=== PATIENT | male | born 1955 | race Caucasian/White ===

== ENCOUNTER 2021-01-03 13:11 | Outpatient (REF) | payer BC, SELFPAY ==
--- NOTE | ~2021-01-03 | XR_ITS ---
EXAMINATION: LEFT FOOT AND RIGHT FINGER. CLINICAL INFORMATION: Pain right hand. Pain left foot. COMPARISON: None TECHNIQUE: 3 views right finger. 3 views left foot. FINDINGS: Right finger: There is no visible acute fracture, dislocation or subluxation seen. No lytic process. The PIP and DIP joints are normal. The soft tissues are normal. Left foot: There is no visible acute fracture, dislocation or subluxation. The soft tissues are normal. XR/XR foot LT min 3V IMPRESSION: Unremarkable right finger and left foot exam.
--- NOTE | ~2021-01-03 | XR_ITS ---
EXAMINATION: LEFT FOOT AND RIGHT FINGER. CLINICAL INFORMATION: Pain right hand. Pain left foot. COMPARISON: None TECHNIQUE: 3 views right finger. 3 views left foot. FINDINGS: Right finger: There is no visible acute fracture, dislocation or subluxation seen. No lytic process. The PIP and DIP joints are normal. The soft tissues are normal. Left foot: There is no visible acute fracture, dislocation or subluxation. The soft tissues are normal. XR/XR finger RT min 2V IMPRESSION: Unremarkable right finger and left foot exam.
== END 2021-01-03 13:12 | disposition home or self-care (01) ==
LOC: HO.HMGCX 13:11
PROVIDERS: PCP Internal Medicine; Visit Provider Hospitalist
DX: M79.672 Pain in left foot (principal); M79.641 Pain in right hand
CPT/HCPCS: 73140; 73630

== ENCOUNTER 2021-02-01 09:16 | Outpatient (REF) | payer BC, SELFPAY | END 2021-02-01 09:17 | disposition home or self-care (01) | LOC: HO.LAB 09:16 | PROVIDERS: PCP Internal Medicine; Visit Provider Internal Medicine | DX: Z20.822 Contact with and (suspected) exposure to COVID-19 (principal) | CPT/HCPCS: C9803; U0003; U0005 ==

== ENCOUNTER → 2021-02-15 12:51 | Outpatient (REF) | payer BC, SELFPAY ==
--- NOTE | 2021-02-15 12:55 | CA_ITS ---
Transthoracic Echocardiogram Patient (Last, First, Middle): Mo Bello J Gender: Male Date of : 1955 Age: 65 Procedure Date: 02/15/2021 Procedure Type: Transthoracic Echocardiogram Location: OP Height: 180.34 cm Weight: 77.11 kg BSA: 1.97 m2 Heart Rate: bpm BP: 124 / 68 mmHg Electrical Continuity Tester: IVAN Referring MD: Benji Zhang DO Anime Artist: Chris Jean MD Symptoms: R01.1 - Cardiac murmur, unspecified Study Quality: Fair ECG Rhythm: Sinus Conclusions: - 1. Normal LV systolic and diastolic function 2. Moderately dilated left atrium 3. Myxomatous mitral valve changes with posterior mitral valve leaflet prolapse with at least moderate eccentric mitral regurgitation, could be underestimated. Quantitative analysis was not performed 4. Mildly dilated ascending aorta 5. Mild aortic regurgitation 6. Normal RV systolic pressure 7. No pericardial effusion Findings Left Ventricle Normal left ventricular size, thickness, and systolic function. The visually estimated ejection fraction is between 60-65%. Spectral Doppler is indicative of a normal filling pattern. Right Ventricle Normal right ventricular cavity size and systolic function. Atria The left atrium is moderately dilated. There is no evidence of interatrial shunt. The right atrium is likely dilated. Aortic Valve Normal aortic valve structure and function. There is no aortic valve stenosis. There is mild aortic valve regurgitation. Mitral Valve The mitral valve appears myxomatous. There is moderate anterior and posterior mitral leaflet thickening. There is mild posterior mitral leaflet prolapse. There is moderate mitral valve regurgitation. The mitral regurgitation jet is directed anteriorly. There is no mitral valve stenosis. Pulmonic Valve The pulmonic valve is likely normal. Tricuspid Valve Likely normal tricuspid valve structure and function. There is mild tricuspid valve regurgitation. The right ventricular systolic pressure is normal. The right ventricular systolic pressure is 37 mmHg. Normal right atrial pressure. There is no evidence of pulmonary hypertension. Great Vessels The pulmonary artery was not well visualized. There is mild dilatation of the ascending aorta measuring 4.20 cm. Venous The inferior vena cava is normal in size and collapses greater than 50% with inspiration. Pericardium/Pleural There is no evidence of pericardial effusion. Prior Study Comparison No prior study available for comparison. Measurements 2D Linear Measurements IVSd: 1.05 0.6-0.9/0.6-1.0 cm LVIDd: 6.27 3.9-5.3/4.2-5.9 cm LVIDd Index: 3.18 2.4-3.2/2.2-3.1 cm/m2 LVIDs: 4.01 2.0-3.6 cm LVPWd: 1.09 0.7-1.1 cm Ao Root: 3.00 2.1-3.5 cm LA Diam: 4.80 2.7-3.8/3.0-4.0 cm LAIDs Index: 2.44 1.5-2.3 cm/m2 LV Mass: 398.25 67-162/88-224 g LV Mass Index: 202.16 43-95/49-115 g/m2 LVOT Diam: 2.20 3.0+(-)1.3 cm 2D Systolic Function EF 4C: 67.20 >55% EF 2C: 62.80 >55% EF BiP: 65.50 >55% Mitral Valve MV Pk E: 0.72 MV PK A: 0.32 MV Decel Time: 208.00 E/A: 2.30 E'Lateral: 9.14 E'Medial: 9.68 E/E' Med: 7.50 E/E' Lat: 7.90 PHT: 61.00 MVA PHT: 3.61 Decel [place]: 3.48 Aortic Valve AoV Pk [place]: 1.36 AoV Pk Grad: 7.00 AI Pk [place]: 3.91 AI [place]: 1.69 LVOT LVOT Pk [place]: 1.16 LVOT Mn [place]: 0.62 LVOT VTI: 0.21 LVOT Pk Grad: 5.00 LVOT Mn Grad: 2.00 LVOT Diam: 2.20 LVOT Area: 3.80 Diastolic Function MV Pk E: 0.72 MV Pk A: 0.32 E/A: 2.30 E'Medial: 9.68 E/E' Med: 7.50 E' Laterial: 9.14 E/E' Lat: 7.90 Right Ventricle TAPSE (mm): 2.75 Tricuspid Valve TR Pk [place]: 2.91 TR Pk Grad: 34.00 RA Press: 3.00 RVSP: 37.00 Great Vessels Aorta Ao Root-2D: 3.00 2.0-3.7 cm Ao Asc: 4.20 2.1-3.4 cm Ao Arch: 3.00 Updated in Other Vendor System with Status of Final Chris Jean MD electronically signed on 02/16/2021 9:25:24 AM with status of Final
== END ==
LOC: HO.CARD 12:51
PROVIDERS: PCP Internal Medicine; Visit Provider Hospitalist
DX: R01.1 Cardiac murmur, unspecified (principal)
CPT/HCPCS: 93306

== ENCOUNTER 2021-05-09 12:42 | Outpatient (REF) | payer BC, SELFPAY ==
[2021-05-09 13:01] LABS: MANUAL DIFF FLAG NO
[2021-05-09 13:05] LABS: Basophils Percent Auto 0.6 % (0-2); Eosinophils Absolute Auto 0.1 X10*3/uL (0.0-0.4); Hematocrit 43.9 % (42.0-52.0); Hemoglobin 14.2 g/dl (14.0-18.0); Imm Gran Abs Auto 0.02 X10*3/uL (0.00-0.03); Imm Gran Pct Auto 0.4 % (0.0-0.4); Lymphocytes Absolute Auto 1.7 X10*3/uL (1.2-4.9); Lymphocytes Percent Auto 33.5 % (20-40); Mean Corpuscular HGB Conc 32.3 g/dl (31.0-36.0); Mean Corpuscular Hemoglobin 30.5 pg (27.0-33.0); Mean Corpuscular Volume 94.2 fL (80.0-98.0); Mean Platelet Volume 9.7 fL (9.4-12.4); Monocytes Absolute Auto 0.3 X10*3/uL (0.1-1.2); Monocytes Percent Auto 6.7 % (2-11); Neutrophils Absolute Auto 2.9 x10*3/uL (2.0-8.3); Neutrophils Percent Auto 57.8 % (45-73); Platelet Count 195 X10*3/uL (160-400); Red Blood Count 4.66 X10*6/uL (4.60-5.80); Red Cell Distribution Width 13.1 % (11.0-16.0); White Blood Count 5.1 X10*3/uL (4.8-10.8)
[2021-05-09 14:36] LABS: Prostate Specific Antigen Scr 2.32 ng/mL (<0.05-4.0); TSH reflex Free T4 0.68 uIU/mL (0.32-4.0); Vitamin D 25-OH Total 11.5 ng/mL (>30)
[2021-05-09 16:09] LABS: Appearance Urine CLEAR; Color Urine YELLOW; Glucose Urine UA NEG (NEG); Leukocyte Esterase Urine NEG (NEG); Nitrite Urine NEG (NEG); Specific Gravity - Urine >= 1.030 (1.005-1.025); Urine Blood NEG (NEG); Urine Ketones NEG (NEG); Urine Protein NEG (NEG-TRACE)
== END 2021-05-09 12:43 | disposition home or self-care (01) ==
LOC: HO.LAB 12:42
PROVIDERS: PCP Internal Medicine; Visit Provider Internal Medicine
DX: Z00.00 Encounter for general adult medical examination without abnormal findings (principal); Z12.5 Encounter for screening for malignant neoplasm of prostate; E55.9 Vitamin D deficiency, unspecified; E78.00 Pure hypercholesterolemia, unspecified; I10 Essential (primary) hypertension
CPT/HCPCS: 36415; 81003; 82306; 84153; 84443; 85025

== ENCOUNTER 2021-05-16 08:16 | Outpatient (REF) | payer BC, SELFPAY ==
[2021-05-16 09:28] LABS: Alanine Aminotransferase 14 U/L (0-40); Albumin Level 4.1 g/dL (3.5-5.0); Alkaline Phosphatase 42 U/L (39-117); Anion Gap 8 (12-20); Aspartate Amino Transferase 17 U/L (5-37); Bilirubin Total 1.4 mg/dL (0.0-1.0); Blood Urea Nitrogen 16 mg/dL (9-16); Calcium 9.4 mg/dL (8.4-10.2); Carbon Dioxide 29 mmol/L (22-29); Chloride 109 mmol/L (96-108); Cholesterol 184 mg/dL; Estimated Glomerular Filt Rate > 60; Glucose Fasting 96 mg/dL (60-99); HDL Cholesterol 53 mg/dL; LDL Cholesterol Calculated 119 mg/dl; Potassium 4.4 mmol/L (3.3-5.1); Sodium 142 mmol/L (135-145); Total Protein 6.8 g/dL (6.5-8.0); Triglycerides 60 mg/dL
== END 2021-05-16 08:17 | disposition home or self-care (01) ==
LOC: HO.LAB 08:16
PROVIDERS: PCP Internal Medicine; Visit Provider Internal Medicine
DX: Z00.00 Encounter for general adult medical examination without abnormal findings (principal); Z13.220 Encounter for screening for lipoid disorders
CPT/HCPCS: 36415; 80053; 80061

== ENCOUNTER 2021-05-25 13:24 | Outpatient (REF) | payer BC, SELFPAY ==
[2021-05-25 20:58] LABS: Influenza A PCR NEGATIVE (Negative); Influenza B PCR NEGATIVE (Negative); Resp Syncy Virus RNA Qual PCR NEGATIVE (Negative); SARS COV2 PCR INHOUSE NEGATIVE (Negative)
== END 2021-05-25 13:25 | disposition home or self-care (01) ==
LOC: HO.LAB 13:24
PROVIDERS: Visit Provider Family Medicine
DX: Z20.822 Contact with and (suspected) exposure to COVID-19 (principal); B34.9 Viral infection, unspecified
CPT/HCPCS: 0241U

== ENCOUNTER 2022-10-21 10:20 | Outpatient (REF) | payer BC, SELFPAY ==
[2022-10-21 10:35] LABS: MANUAL DIFF FLAG NO
[2022-10-21 10:48] LABS: Basophils Absolute Auto 0.1 X10*3/uL (0.0-0.2); Eosinophils Absolute Auto 0.1 X10*3/uL (0.0-0.4); Eosinophils Percent Auto 2.9 % (0-4); Hematocrit 42.2 % (42.0-52.0); Hemoglobin 14.1 g/dl (14.0-18.0); Imm Gran Abs Auto 0.01 X10*3/uL (0.00-0.03); Imm Gran Pct Auto 0.2 % (0.0-0.4); Lymphocytes Absolute Auto 1.8 X10*3/uL (1.2-4.9); Mean Corpuscular HGB Conc 33.4 g/dl (31.0-36.0); Mean Corpuscular Hemoglobin 30.5 pg (27.0-33.0); Mean Corpuscular Volume 91.1 fL (80.0-98.0); Mean Platelet Volume 9.5 fL (9.4-12.4); Monocytes Absolute Auto 0.4 X10*3/uL (0.1-1.2); Monocytes Percent Auto 8.1 % (2-11); Neutrophils Absolute Auto 2.4 x10*3/uL (2.0-8.3); Neutrophils Percent Auto 50.8 % (45-73); Platelet Count 197 X10*3/uL (160-400); Red Blood Count 4.63 X10*6/uL (4.60-5.80); Red Cell Distribution Width 12.8 % (11.0-16.0); White Blood Count 4.8 X10*3/uL (4.8-10.8)
[2022-10-21 11:13] LABS: Appearance Urine Clear; Color Urine Yellow; Glucose Urine UA Negative (Negative); Leukocyte Esterase Urine Negative (Negative); Nitrite Urine Negative (Negative); PH 5.5 (5.0-9.0); Urine Blood Negative (Negative); Urine Ketones Negative (Negative); Urine Protein Negative (Neg-Trace)
[2022-10-21 11:28] LABS: Alanine Aminotransferase 24 U/L (0-40); Albumin Level 4.1 g/dL (3.5-5.0); Alkaline Phosphatase 50 U/L (39-117); Anion Gap 11 (12-20); Aspartate Amino Transferase 21 U/L (5-37); Bilirubin Total 1.3 mg/dL (0.0-1.0); Blood Urea Nitrogen 14 mg/dL (9-16); Calcium 9.4 mg/dL (8.4-10.2); Carbon Dioxide 27 mmol/L (22-29); Chloride 108 mmol/L (96-108); Cholesterol 126 mg/dL; Estimated Glomerular Filt Rate > 60; Glucose Fasting 88 mg/dL (60-99); HDL Cholesterol 43 mg/dL; LDL Cholesterol Calculated 76 mg/dl; Potassium 4.3 mmol/L (3.3-5.1); Sodium 142 mmol/L (135-145); Triglycerides 38 mg/dL
[2022-10-21 11:44] LABS: TSH reflex Free T4 0.87 uIU/mL (0.32-4.0)
== END 2022-10-21 10:21 | disposition home or self-care (01) ==
LOC: HO.LAB 10:20
PROVIDERS: PCP Internal Medicine; Visit Provider Internal Medicine
DX: R30.0 Dysuria (principal); E78.00 Pure hypercholesterolemia, unspecified; E55.9 Vitamin D deficiency, unspecified; I10 Essential (primary) hypertension
CPT/HCPCS: 36415; 80053; 80061; 81003; 82306; 84443; 85025

== ENCOUNTER 2023-03-06 14:33 | Outpatient (AMB) | payer BC, SELFPAY ==
--- NOTE | 2023-03-06 14:51 | MHC.PC.OV ---
Vital Signs 03/06/23 14:52 Height 5 ft 10 in Weight 182 lb 4 oz BMI 26.1 BP 100/72 Blood Pressure Location Lt brachial Position Sitting Pulse 58 Pulse Source Pulse Oximeter Pulse Oximetry (%) 97 Oxygen Delivery Method Room Air Intake Visit Reasons: annual PE Social Services Required: No Accompanied by: Self / Same As Patient Allergies poison adolfo extract Allergy (Severe, Verified 03/06/23 15:27) Blister cat dander [CATS] Allergy (Mild, Verified 03/06/23 15:27) SNEEZING/ITCHY EYES Environmental Allergy (Mild, Uncoded 03/06/23 15:27) SNEEZING/ITCHY EYES Medication List - Last Reconciled 03/06/23 by Tico Reynolds MD amoxicillin 2,000 mg (4 x 500 mg) PO ONCE 1 day apixaban (Eliquis) 5 mg PO BID 10 days aspirin 325 mg PO DAILY atorvastatin 20 mg PO BEDTIME 90 days metoprolol succinate ER 12.5 mg (1/2 x 25 mg) PO DAILY 90 days Tobacco use date assessed: 03/06/23 Fall risk assessment: No Falls in past year Last assessed Fall Risk: 03/06/23 Dental Screening Dental Screen Date: 03/06/23 Did you have a dental visit in the last 12 months?: Yes Did you have a dental problem in the last 6 months where you did not have access to dental care?: No Was dental information given to patient?: Patient has dentist HPI annual PE HPI Details Patient comes in today for his annual physical examination States that he feels okay although his friend, who has been helping him throughout his recovery process, notes that there are days wherein he has no motivation at all and does not feel like he wants to do anything Patient continues to struggle with short-term memory recall and expressive aphasia He has received outpatient speech therapy for this in the past with some improvement in his aphasia His friend states that he is still not doing well with his memory and often needs a lot of help and repeated reminders to help him get through the day He continues to follow up at the outpatient Stroke Clinic in [place] every 3 to 6 months or so He is currently going to cardiac rehab once a week and will be starting PT & OT at [facility] nect month (March 2023) States that he currently tries to stay active at home by mowing the lawn and doing come chores and DIY work whenever he can but he is still not allowed/approved to go back to driving yet He will potentially be undergoing another cardiac cath sometime next month with cardiology for follow up of his cardiac surgery and valvular repair He currently denies any headaches or dizziness Denies any chest pains, no increased SOB No nausea/vomiting, no abdominal pain No change in bowel habits noted He denies any acute urinary symptoms - states that he goes to the bathroom in the middle of the night at most just once or sometimes not at all He is currently out of his Eliquis (took last dose last night) and is having trouble getting his doctor in [place] to refill his Rx He also did not get his follow up labs done prior to his visit today He had his screening colonoscopy last done by Dr. Shirley on 01/26/2020 - (+) tubular adenoma and recommended repeat colonoscopy in 5 years (2024) [facility] Medical History (Updated 03/06/23 @ 18:12 by Tico Reynolds MD) Cerebrovascular accident (CVA) Vitamin D deficiency Left atrial dilatation Mitral valve prolapse Tubular adenoma of colon Allergic rhinitis Overweight (BMI 25.0-29.9) Surgical History (Updated 03/06/23 @ 17:18 by Tico Reynolds MD) Hx of mitral valve repair (~02/22/22) History of colonoscopy History of esophagogastroduodenoscopy (EGD) History of inguinal hernia repair History of tonsillectomy and adenoidectomy H/O right wrist surgery Family History Father Prostate cancer Mother Alzheimers disease Sister Multiple sclerosis Non-Hodgkin lymphoma Social History Housing: House Alcohol intake: current Alcohol intake frequency: a few times a month Patient Tobacco Use Status: Former Tobacco user e-Cigarette/Vaping Use: Never Used Second Hand Smoke Exposure: Yes service: No Current occupational status: employed Cognitive needs: No Hearing needs: No Vision needs: No Questionnaire PHQ-9 Over the last 2 weeks, how often have you been bothered by any of the following problems? 1. Little interest or pleasure in doing things: not at all 2. Feeling down, depressed, or hopeless: not at all 3. Trouble falling or staying asleep, or sleeping too much: not at all 4. Feeling tired or having little energy: not at all 5. Poor appetite or overeating: not at all 6. Feeling bad about yourself - or that you are a failure or have let yourself or your family down: not at all 7. Trouble concentrating on things, such as reading the newspaper or watching television: not at all 8. Moving or speaking so slowly that other people could have noticed. Or the opposite - being so fidgety or restless that you have been moving around a lot more than usual: not at all 9. Thoughts that you would be better off or of hurting yourself in some way: not at all Total score: 0 Depression Screening Interpretation: Negative Depression Screening Done: Yes 28525 - PHQ-9 Billing: Yes Source: Developed by Drs. Kody Rouse, Renée Hatch, Misha Bravo and colleagues, with an educational malik from [employer] Thrive Questionnaire Date Thrive assessed: 03/06/23 I am a: Patient What is your living situation today?: I have a steady place to live Within the past 12 months, did the food you bought not last and you didn't have the money to get more?: Never true Within the past 12 months, did you worry whether your food would run out before you got money to buy more?: Never true Do you have trouble paying for medicines?: No Do you have trouble getting transportation to medical appointments?: No Do you have trouble paying your heating and electricity bill?: No Do you have trouble taking care of your child, family member or friend?: No Do you have trouble with day-to-day activities such as bathing, preparing meals, shopping, managing finances, etc.?: No Are you currently unemployed and looking for a job?: No Are you interested in more education?: No Please select the resources that you would like help with: None Currently or been in a relationship where the following occur: no concerns reported AUDIT C Alcohol Use Questionnaire (AUDIT-C) 1. How often do you have a drink containing alcohol?: Never 3. How often do you have six or more drinks on one occasion?: Never Total Score: 0 Score Reviewed/Action Taken: Yes ZAKIYA-7 AMB Questionnaire ZAKIYA-7 Date ZAKIYA - 7 assessed: 03/06/23 Feeling nervous, anxious, or on edge: 0 = Not at all Not being able to stop or control worryin = Not at all Worrying too much about different things: 0 = Not at all Trouble relaxin = Not at all Being so restless that it is hard to sit still: 0 = Not at all Becoming easily annoyed or irritable: 0 = Not at all Feeling afraid as if something awful might happen: 0 = Not at all Total ZAKIYA-7 score (0-4 normal; 5-9 mild; 10-14 moderate; 15-21 severe): 0 Source: Developed by Drs. Kody Rouse, Renée Hatch, Misha Bravo and colleagues, with an educational malik from [employer] Review of Systems Const Denies chills, Reports fatigue (mild), Denies fever(s) and Denies headache(s) Eyes Reports blurry vision (right eye) and Denies diplopia ENT Denies dysphagia, Reports vertigo (on and off), Denies otalgia, Denies headache(s), Denies neck pain, Denies odynophagia, Reports tinnitus (on and off) and Denies sore throat Card Denies chest pain, Denies palpitations and Reports dyspnea on exertion (mild) Resp Denies cough, Reports dyspnea on exertion (mild) and Denies wheezing GI Denies abdominal pain, Denies constipation, Denies dysphagia, Denies diarrhea, Denies nausea, Denies odynophagia and Denies vomiting Denies difficulty urinating, Denies dysuria, Denies nocturia, Denies urinary frequency and Denies urinary incontinence Musc Denies abnormal gait, Denies back pain and Denies neck pain Skin/Breast Denies change in pigmentation, Denies lesions, Denies rash and Denies unusual bruising Neuro Denies Abnormal speech present (still has issues with expressive aphasia at times), Denies abnormal gait, Reports confusion (at times), Reports vertigo (on and off), Denies headache(s) and Reports memory loss (mostly short-term ) Psych Reports confusion (at times) and Reports memory loss (mostly short-term ) Endo Reports fatigue (mild) and Denies palpitations Aller/Immun Denies wheezing Physical exam (Primary Care) Vital Signs: Last Vital Signs Pulse 58 03/06/23 14:52 BP 100/72 03/06/23 14:52 Pulse Ox 97 03/06/23 14:52 Oxygen Delivery Method Room Air 03/06/23 14:52 BMI result Body Mass Index 26.1 Tobacco/Smoking Status: Tobacco use Status Tobacco use date assessed 03/06/23 03/06/23 14:53 Patient Tobacco Use Status Former Tobacco user 03/06/23 14:53 e-Cigarette/Vaping Use Never Used 03/06/23 14:53 PHQ-9: PHQ-9 Score PHQ-9: Total score 0 03/06/23 15:24 Depression Screening Interpretation: Negative Thrive Assessment: Date of Thrive Assessment Date Thrive assessed 03/06/23 03/06/23 14:53 Currently or been in a relationship where the following occur: no concerns reported Const General: alert and confusion (at times); No no acute distress Orientation/consciousness: confusion (at times) HENMT Head: Yes normocephalic and Yes atraumatic Ears: external ears normal, TM's normal bilaterally and EAC's normal General nose exam: No nasal discharge present Face and sinus: Yes normal facial exam and Yes sinuses nontender Teeth and gingiva: dentition normal Throat: Yes posterior oropharynx normal and Yes tonsils normal (no TP congestion) Eyes Eyelids: Yes eyelids normal Conjunctivae: conjunctivae normal Pupils: Equal, round and reactive pupils present EOM: EOMs intact bilaterally Neck Neck: Yes no lymphadenopathy and Yes supple Thyroid: Thyroid normal Resp Auscultation: clear to auscultation bilaterally, no rales and no wheezes Cardio Rate: regular rate Rhythm: regular rhythm Heart sounds: no murmurs GI Palpation (GI): Soft to palpation, nontender and No hepatosplenomegaly present Auscultation: normal bowel sounds General: Yes no CVA tenderness Back/Spine/Pelvis Back: no CVA tenderness Thoracic/Lumbar Spine: thoracic and lumbar spine normal to inspection Skin Lesions: no lesions Rashes: no rashes Neuro Other: Had MOCA testing done a few months ago in October 2022 - patient scored 25 out of 30, mostly because he failed on the delayed recall part of the exam - was unable to recall any of the 5 words previously mentioned General: confusion (at times) Cranial nerves: Yes Equal, round and reactive pupils present Cognition (Neuro): normal cognition Speech: No Abnormal speech present (still has issues with expressive aphasia at times) Gait exam (Neuro): Normal gait present Extrem General: Yes no clubbing, cyanosis or edema Assessment and Plan Assessment & Plan (1) Annual physical exam: Code(s): Z00.00 - Encounter for general adult medical examination without abnormal findings Plan: Patient did not get his follow up labs done recently but advised that his previous labs done in September 2022 were mostly within normal range He is currently up-to-date on his colon cancer screening and will not need this repeated until 2024 He is also advised to get his high-dose flu vaccine at his local pharmacy given his cardiac issues and comorbidites and to make sure he gets his shingles vaccine, pneumonia vaccines and COVID booster as well if he has not gotten them yet (2) Cerebrovascular accident (CVA): Comment: S/P tPA (Tenecteplase) on 07/22/2022 at 12:18 pm Code(s): I63.9 - Cerebral infarction, unspecified Qualifiers: CVA mechanism: embolism Precerebral and cerebral artery: posterior cerebral artery Laterality of affected vessel: left Qualified Code(s): I63.432 - Cerebral infarction due to embolism of left posterior cerebral artery Plan: S/P tPA in 06/2022 Brain MRI at the time revealed findings of acute left FINANCIAL AID infarct, involving primarily the left hippocampus and left occipital lobe Patient still has some visual impairment in his right eye and some degree of expressive aphasia as well as issues with short-term memory recall (memory loss) but has no other significant physical symptoms or sequelae from his CVA Continue Aspirin 325 mg QD and Eliquis 5 mg BID; was also started on Atorvastatin 20 mg QD for risk reduction and Pantoprazole 40 mg QD for GI prophylaxis Follow-up with Neurology and Ophthalmology as scheduled - has been advised/reminded NOT to drive until he is cleared by ophthalmology Will recheck his labs in 4 months for follow up; he was not able to get his labs done prior to his appt today Is advised that he should not be allowed to run out of his Eliquis for any length of time - will send in Rx for a 10 days' supply for now to his local pharmacy and this should give him some time to try to reach out to his lead clinical research coordinator in [place] to get this refilled for his usual 3 months' supply (3) Myxomatous mitral valve: Comment: S/P mitral valve repair, left atrial appendage amputation, biatrial Maze and closure of PFO (Dr. Hernandez) at [facility] in [place] on 02/22/2022 Code(s): I34.1 - Nonrheumatic mitral (valve) prolapse Plan: Echocardiogram in January 2021 first revealed a myxomatous mitral valve with posterior mitral valve leaflet prolapse and with moderate mitral valve regurgitation; there was also a mildly dilated ascending aorta and mild aortic regurgitation but LV systolic and diastolic function were normal and RV systolic pressure was also normal with no pericardial effusion noted Patient underwent mitral valve repair with Maze and PFO closure on 02/22/22 He was on Coumadin and Maze x 1 month post-op; was then transitioned over to Eliquis 5 mg BID and Aspirin 325 mg QD Continue Metoprolol ER 12.5 mg (1/2 tablet of 25 mg) QD Plan was to keep him on Aspirin 325 mg x 3 months, then decrease it to 81 mg QD lifetime but he is now instructed to stay on 325 mg QD (until advised otherwise by neurology) due to his CVA in June 2022 He is again reminded that he will need prophylactic Abx for any dental or invasive procedure for the rest of his life Continue cardiac rehab (he goes once a week now) and follow up with cardiology as scheduled (4) Left atrial dilatation: Code(s): I51.7 - Cardiomegaly Plan: (+) LA dilatation arising from his mitral valve disorder/degeneration. There is also a mildly dilated ascending aorta seen on echocardiogram but LV systolic and diastolic function are preserved /normal and RV systolic pressure is also normal Will continue to follow this up with cardiac echo routinely (5) Persistent atrial fibrillation: Comment: S/P Maze procedure Code(s): I48.19 - Other persistent atrial fibrillation Plan: Is currently in sinus rhythm and is rate-controlled on Metoprolol ER 12.5 mg QD Continue Aspirin 325 mg QD; is also on Eliquis 5 mg BID following his recent CVA in June 2022 (6) Vitamin D deficiency: Code(s): E55.9 - Vitamin D deficiency, unspecified Plan: Continue Vitamin D3 2000 units QD (7) Allergic rhinitis: Code(s): J30.9 - Allergic rhinitis, unspecified Qualifiers: Allergic rhinitis trigger: pollen Allergic rhinitis seasonality: seasonal Qualified Code(s): J30.1 - Allergic rhinitis due to pollen Plan: Continue Loratadine 10 mg QD PRN (8) 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): Code(s): I69.398 - Other sequelae of cerebral infarction; F06.30 - Mood disorder due to known physiological condition, unspecified Plan: Patient has been advised that considering what happened to him over the past couple of years and the significant impact that his recent CVA had on him and the degree of impairment that he has been going through, it is not at all unusual for one to start experiencing symptoms of depression Advised that he should consider taking something to help with his mood and this may also help him recover from his incapacities faster Have also advised that it does not mean that once he starts taking some Rx for depression/mood that he will be taking it for the rest of his life and that at some point in the future, if he starts to feel better and has recovered significantly from his current problems, we can always consider weaning him off the medications when appropriate Patient declines Rx for now and states that he will think about it and call if he decides to start taking Rx but in the meantime, would like to continue trying to cope by staying active and staying busy Plan Follow up in 4 months (spring 2023) Orders: Orders Complete Blood Count Auto Diff 4 Months I10 - Essential (primary) hypertension Comprehensive [place]. Panel Fast 4 Months E78.00 - Pure hypercholesterolemia, unspecified TSH reflex Free T4 4 Months E78.00 - Pure hypercholesterolemia, unspecified UA CC w/rflx Micro + Cult 4 Months R30.0 - Dysuria Lipid Panel 4 Months E78.00 - Pure hypercholesterolemia, unspecified Vitamin D 25-OH Total 4 Months E55.9 - Vitamin D deficiency, unspecified Prostate Specific Antigen 4 Months N40.0 - Benign prostatic hyperplasia without lower urinary tract symptoms Vitamin B12 and Folate 4 Months E53.8 - Deficiency of other specified B group vitamins Medications: Changed From apixaban (Eliquis) 5 mg PO BID To apixaban (Eliquis) 5 mg PO BID 20 tabs 0RF 10 days Coding Level of Care Code Est Pt Prev Care >65y(16502) Diagnoses Annual physical exam Z00.00 Cerebrovascular accident (CVA) due to embolism of left posterior cerebral artery I63.432 CVA mechanism: embolism Precerebral and cerebral artery: posterior cerebral artery Laterality of affected vessel: left 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 Left atrial dilatation I51.7 Persistent atrial fibrillation I48.19 Vitamin D deficiency E55.9 Seasonal allergic rhinitis due to pollen J30.1 Allergic rhinitis trigger: pollen Allergic rhinitis seasonality: seasonal 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
[2023-03-06 14:52] VITALS: BP 100/72; PULSE 58; O2SAT 97; BMI 26.1
== END 2023-03-06 15:42 | disposition home or self-care (01) ==
PROVIDERS: PCP Internal Medicine; Visit Provider Internal Medicine
DX: Z00.00 Encounter for general adult medical examination without abnormal findings (principal); I63.432 Cerebral infarction due to embolism of left posterior cerebral artery; I48.19 Other persistent atrial fibrillation; I34.1 Nonrheumatic mitral (valve) prolapse; I51.7 Cardiomegaly; E55.9 Vitamin D deficiency, unspecified; J30.1 Allergic rhinitis due to pollen; I69.398 Other sequelae of cerebral infarction; F06.30 Mood disorder due to known physiological condition, unspecified
CPT/HCPCS: 99397

== ENCOUNTER 2023-08-28 08:07 | Outpatient (REF) | payer BC, SELFPAY ==
[2023-08-28 08:24] LABS: MANUAL DIFF FLAG NO
[2023-08-28 08:37] LABS: Basophils Percent Auto 0.8 % (0-2); Eosinophils Absolute Auto 0.1 X10*3/uL (0.0-0.4); Eosinophils Percent Auto 2.5 % (0-4); Hematocrit 45.5 % (42.0-52.0); Hemoglobin 15.1 g/dl (14.0-18.0); Lymphocytes Absolute Auto 1.7 X10*3/uL (1.2-4.9); Lymphocytes Percent Auto 34.1 % (20-40); Mean Corpuscular HGB Conc 33.2 g/dl (31.0-36.0); Mean Corpuscular Hemoglobin 30.1 pg (27.0-33.0); Mean Corpuscular Volume 90.6 fL (80.0-98.0); Mean Platelet Volume 9.6 fL (9.4-12.4); Monocytes Absolute Auto 0.4 X10*3/uL (0.1-1.2); Monocytes Percent Auto 7.1 % (2-11); Neutrophils Absolute Auto 2.8 x10*3/uL (2.0-8.3); Neutrophils Percent Auto 55.5 % (45-73); Platelet Count 199 X10*3/uL (160-400); Red Blood Count 5.02 X10*6/uL (4.60-5.80); Red Cell Distribution Width 13.1 % (11.0-16.0); White Blood Count 5.1 X10*3/uL (4.8-10.8)
[2023-08-28 09:16] LABS: Alanine Aminotransferase 34 U/L (0-40); Albumin Level 3.9 g/dL (3.5-5.0); Alkaline Phosphatase 57 U/L (39-117); Anion Gap 9 (12-20); Aspartate Amino Transferase 24 U/L (5-37); Bilirubin Total 0.9 mg/dL (0.0-1.0); Blood Urea Nitrogen 12 mg/dL (9-16); Calcium 9.2 mg/dL (8.4-10.2); Carbon Dioxide 30 mmol/L (22-29); Chloride 108 mmol/L (96-108); Cholesterol 122 mg/dL (<200); Estimated Glomerular Filt Rate > 60; Glucose Fasting 92 mg/dL (60-99); HDL Cholesterol 44 mg/dL (>40); LDL Cholesterol Calculated 70 mg/dL (<100); Potassium 4.9 mmol/L (3.3-5.1); Sodium 142 mmol/L (135-145); Total Protein 7.1 g/dL (6.5-8.0); Triglycerides 44 mg/dL (<150)
[2023-08-28 09:36] LABS: TSH reflex Free T4 0.85 uIU/mL (0.32-4.0); Vitamin D 25-OH Total 21.1 ng/mL (>30)
[2023-08-28 09:38] LABS: Folate 9.1 ng/mL (> or = 4.0); Prostate Specific Antigen 2.94 ng/mL (<0.05-4.0); Vitamin B12 328 pg/mL (200-900)
== END 2023-08-28 08:08 | disposition home or self-care (01) ==
LOC: HO.LAB 08:07
PROVIDERS: PCP Internal Medicine; Visit Provider Internal Medicine
DX: Z00.00 Encounter for general adult medical examination without abnormal findings (principal); Z12.5 Encounter for screening for malignant neoplasm of prostate; E78.00 Pure hypercholesterolemia, unspecified; I10 Essential (primary) hypertension; E55.9 Vitamin D deficiency, unspecified; E53.8 Deficiency of other specified B group vitamins; N40.0 Benign prostatic hyperplasia without lower urinary tract symptoms
CPT/HCPCS: 36415; 80053; 80061; 82306; 82607; 82746; 84153; 84443; 85025

== ENCOUNTER 2023-09-03 11:05 | Outpatient (AMB) | payer BC, SELFPAY ==
--- NOTE | 2023-09-03 11:06 | A.OFFPC_ITS ---
Vital Signs 09/03/23 11:07 Height 5 ft 10 in Weight 182 lb 8 oz BMI 26.2 BP 102/64 Blood Pressure Location Lt brachial Position Sitting Pulse 60 Pulse Source Pulse Oximeter Pulse Oximetry (%) 97 Oxygen Delivery Method Room Air Intake Visit Reasons: 5 month f/u Clinical Director Required: No Accompanied by: Spouse Allergies poison adolfo extract Allergy (Severe, Verified 09/03/23 11:32) Blister cat dander [CATS] Allergy (Mild, Verified 09/03/23 11:32) SNEEZING/ITCHY EYES Environmental Allergy (Mild, Uncoded 09/03/23 11:32) SNEEZING/ITCHY EYES Medication List - Last Reconciled 09/03/23 by Tico Reynolds MD apixaban (Eliquis) 5 mg PO BID 10 days aspirin 325 mg PO DAILY atorvastatin 20 mg PO BEDTIME 90 days metoprolol succinate ER 12.5 mg (1/2 x 25 mg) PO DAILY 90 days Tobacco use date assessed: 09/03/23 Fall risk assessment: No Falls in past year Last assessed Fall Risk: 09/03/23 Dental Screening Dental Screen Date: 09/03/23 Did you have a dental visit in the last 12 months?: Yes Did you have a dental problem in the last 6 months where you did not have access to dental care?: No Was dental information given to patient?: Patient has dentist HPI 5 month f/u HPI Details Patient comes in today for his follow up visit States that he has noticed a significant increase in his light sensitivity lately but this is mostly to fluorescent lighting (has no problems so far with LED or incandescent lights) - relates that he gets increased eye pain, headaches and dizziness with prolonged exposure to fluorescent lights States that he feels okay otherwise although he continues to struggle with short-term memory recall and some expressive aphasia His friend states that he is still not doing too well with his memory and often needs a lot of help and repeated reminders to help him get through the day - they feel that his issues with memory recall seems to have gotten slightly worse over the past year Patient states that he continues to try to stay active as much as he can physically He is still following up at the outpatient Stroke Clinic in [place] every 3 to 6 months He has been to cardiac rehab as well as PT & OT at [facility], which have helped somewhat overall but not with his memory Relates that he was seen at [facility] and at the stroke clinic for follow up a couple of months ago and also recently had a repeat echocardiogram - we have not received any of these reports or updates at this time He currently denies any increased headaches or dizziness Denies any chest pains, no increased SOB No nausea/vomiting, no abdominal pain No change in bowel habits noted Had his follow up labs done a few days ago - to discuss his results [facility] Medical History Cerebrovascular accident (CVA) Vitamin D deficiency Left atrial dilatation Mitral valve prolapse Tubular adenoma of colon Allergic rhinitis Overweight (BMI 25.0-29.9) Surgical History Hx of mitral valve repair (~02/22/22) History of colonoscopy History of esophagogastroduodenoscopy (EGD) History of inguinal hernia repair History of tonsillectomy and adenoidectomy H/O right wrist surgery Family History Father Prostate cancer Mother Alzheimers disease Sister Multiple sclerosis Non-Hodgkin lymphoma Social History Housing: House Alcohol intake: current Alcohol intake frequency: a few times a month Patient Tobacco Use Status: Former Tobacco user e-Cigarette/Vaping Use: Never Used Second Hand Smoke Exposure: Yes service: No Current occupational status: employed Cognitive needs: No Hearing needs: No Vision needs: No Questionnaire PHQ-9 Over the last 2 weeks, how often have you been bothered by any of the following problems? 1. Little interest or pleasure in doing things: not at all 2. Feeling down, depressed, or hopeless: not at all 3. Trouble falling or staying asleep, or sleeping too much: not at all 4. Feeling tired or having little energy: not at all 5. Poor appetite or overeating: not at all 6. Feeling bad about yourself - or that you are a failure or have let yourself or your family down: not at all 7. Trouble concentrating on things, such as reading the newspaper or watching television: not at all 8. Moving or speaking so slowly that other people could have noticed. Or the opposite - being so fidgety or restless that you have been moving around a lot more than usual: not at all 9. Thoughts that you would be better off or of hurting yourself in some way: not at all Total score: 0 Depression Screening Interpretation: Negative Depression Screening Done: Yes 66230 - PHQ-9 Billing: Yes Source: Developed by Drs. Kody Rouse, Renée Hatch, Misha Bravo and colleagues, with an educational malik from Editor[employer]. Thrive Questionnaire Date Thrive assessed: 09/03/23 I am a: Patient What is your living situation today?: I have a steady place to live Within the past 12 months, did the food you bought not last and you didn't have the money to get more?: Never true Within the past 12 months, did you worry whether your food would run out before you got money to buy more?: Never true Do you have trouble paying for medicines?: No Do you have trouble getting transportation to medical appointments?: No Do you have trouble paying your heating and electricity bill?: No Do you have trouble taking care of your child, family member or friend?: No Do you have trouble with day-to-day activities such as bathing, preparing meals, shopping, managing finances, etc.?: No Are you currently unemployed and looking for a job?: No Are you interested in more education?: No Please select the resources that you would like help with: None Currently or been in a relationship where the following occur: no concerns reported THRIVE Score: 0 AUDIT C Alcohol Use Questionnaire (AUDIT-C) 1. How often do you have a drink containing alcohol?: Never 3. How often do you have six or more drinks on one occasion?: Never Total Score: 0 Score Reviewed/Action Taken: Yes ZAKIYA-7 AMB Questionnaire ZAKIYA-7 Date ZAKIYA - 7 assessed: 09/03/23 Feeling nervous, anxious, or on edge: 0 = Not at all Not being able to stop or control worryin = Not at all Worrying too much about different things: 0 = Not at all Trouble relaxin = Not at all Being so restless that it is hard to sit still: 0 = Not at all Becoming easily annoyed or irritable: 0 = Not at all Feeling afraid as if something awful might happen: 0 = Not at all Total ZAKIYA-7 score (0-4 normal; 5-9 mild; 10-14 moderate; 15-21 severe): 0 Source: Developed by Drs. Kody Rouse, Renée Hatch, Misha Bravo and colleagues, with an educational malik from [employer]. ZAKIYA-7 Assessment Billing ZAKIYA-7 Assessment Tool: ZAKIYA-7 Assessment 58599 Review of Systems Const Denies chills, Reports fatigue (mild), Denies fever(s) and Denies headache(s) Eyes Reports blurry vision (right eye), Denies diplopia and Reports photophobia (increasing lately, most due to fluorescent lighting) ENT Denies dysphagia, Reports vertigo (on and off), Denies otalgia, Denies headache(s), Denies neck pain, Denies odynophagia, Reports tinnitus (on and off) and Denies sore throat Card Denies chest pain, Denies palpitations and Reports dyspnea on exertion (mild) Resp Denies cough, Reports dyspnea on exertion (mild) and Denies wheezing GI Denies abdominal pain, Denies constipation, Denies dysphagia, Denies diarrhea, Denies nausea, Denies odynophagia and Denies vomiting Denies difficulty urinating, Denies dysuria, Denies nocturia and Denies urinary frequency Musc Denies abnormal gait, Denies back pain and Denies neck pain Skin/Breast Denies rash Neuro Denies Abnormal speech present (still has issues with expressive aphasia at times), Denies abnormal gait, Reports confusion (at times), Reports vertigo (on and off), Denies headache(s) and Reports memory loss (mostly short-term memory loss - feels this is getting worse recently) Psych Reports confusion (at times) and Reports memory loss (mostly short-term memory loss - feels this is getting worse recently) Endo Reports fatigue (mild) and Denies palpitations Aller/Immun Denies wheezing Physical exam (Primary Care) Vital Signs: Last Vital Signs Pulse 60 09/03/23 11:07 BP 102/64 09/03/23 11:07 Pulse Ox 97 09/03/23 11:07 Oxygen Delivery Method Room Air 09/03/23 11:07 BMI result Body Mass Index 26.2 Tobacco/Smoking Status: Tobacco use Status Tobacco use date assessed 09/03/23 09/03/23 11:17 Patient Tobacco Use Status Former Tobacco user 09/03/23 11:07 e-Cigarette/Vaping Use Never Used 09/03/23 11:07 PHQ-9: PHQ-9 Score PHQ-9: Total score 0 09/03/23 11:15 Depression Screening Interpretation: Negative Thrive Assessment: Date of Thrive Assessment Date Thrive assessed 09/03/23 09/03/23 11:15 Currently or been in a relationship where the following occur: no concerns reported Const General: no acute distress and confusion (at times) Orientation/consciousness: confusion (at times) HENMT Ears: TM's normal bilaterally and EAC's normal Throat: Yes posterior oropharynx normal and Yes tonsils normal (no TP congestion) Eyes Direct Ophthalmoscopy: photophobia (increasing lately, most due to fluorescent lighting) Neck Neck: Yes no lymphadenopathy and Yes supple Thyroid: Thyroid normal Resp Auscultation: clear to auscultation bilaterally, no rales and no wheezes Cardio Rate: regular rate Rhythm: regular rhythm Heart sounds: no murmurs GI Palpation (GI): Soft to palpation and nontender Auscultation: normal bowel sounds General: Yes no CVA tenderness Back/Spine/Pelvis Back: no CVA tenderness Skin Rashes: no rashes Neuro Other: Had MOCA testing done in October 2022 - patient scored 25 out of 30, mostly because he failed on the delayed recall part of the exam - was unable to recall any of the 5 words previously mentioned General: confusion (at times) Cognition (Neuro): normal cognition Speech: No Abnormal speech present (still has issues with expressive aphasia at times) Gait exam (Neuro): Normal gait present Extrem General: Yes no clubbing, cyanosis or edema Results Reviewed Results Reviewed: Laboratory Tests 08/28/23 08:19 WBC 5.1 Hgb 15.1 Hct 45.5 Plt Count 199 Sodium 142 Potassium 4.9 Creatinine 1.00 Estimated GFR > 60 Fasting Glucose 92 Calcium 9.2 AST 24 ALT 34 Triglycerides 44 Cholesterol 122 LDL Cholesterol, Calc 70 HDL Cholesterol 44 Prostate Specific Ag 2.94 Vitamin B12 328 25-OH Vitamin D Total 21.1 L Folate 9.1 TSH 0.85 Assessment and Plan Assessment & Plan (1) Cerebrovascular accident (CVA): Comment: S/P tPA (Tenecteplase) on 07/22/2022 at 12:18 pm Code(s): I63.9 - Cerebral infarction, unspecified Qualifiers: CVA mechanism: embolism Precerebral and cerebral artery: posterior cerebral artery Laterality of affected vessel: left Qualified Code(s): I63.432 - Cerebral infarction due to embolism of left posterior cerebral artery Plan: S/P tPA in 06/2022 Brain MRI at the time revealed findings of acute left [employer] infarct, involving primarily the left hippocampus and left occipital lobe Patient has had some visual impairment in his right eye and some degree of expressive aphasia as well as issues with short-term memory recall (memory loss) but has no other significant physical symptoms or sequelae from his CVA His friends and family now feel that his memory recall has been getting worse over the past year Continue Aspirin 325 mg QD and Eliquis 5 mg BID To continue also on Atorvastatin 20 mg QD for additional risk reduction and Pantoprazole 40 mg QD for GI prophylaxis Follow-up with Neurology and Ophthalmology as scheduled - he has been reminded NOT to drive until he is cleared by ophthalmology and neurology Have advised patient's friend to make sure they mention his perceivable decline in his memory recall as well as his recent photophobia to neurology at his follow up appt so they can look into these further He may also likely benefit from a follow up MRI of the brain but advised that I will leave it up to neurology to decide if they feel this is necessary or not Will recheck his labs and fasting lipids in 6 months for follow up (2) Myxomatous mitral valve: Comment: S/P mitral valve repair, left atrial appendage amputation, biatrial Maze and c losure of PFO (Dr. Hernandez) at [facility] on 02/22/2022 Code(s): I34.1 - Nonrheumatic mitral (valve) prolapse Plan: Echocardiogram in January 2021 first revealed a myxomatous mitral valve with posterior mitral valve leaflet prolapse and with moderate mitral valve regurgitation; there was also a mildly dilated ascending aorta and mild aortic regurgitation but LV systolic and diastolic function were normal and RV systolic pressure was also normal with no pericardial effusion noted Patient underwent mitral valve repair with Maze and PFO closure on 02/22/22 He was on Coumadin and Maze x 1 month post-op; was then transitioned over to Eliquis 5 mg BID and Aspirin 325 mg QD Continue Metoprolol ER 12.5 mg (1/2 tablet of 25 mg) QD The original plan was to keep him on Aspirin 325 mg x 3 months, then decrease it to 81 mg QD lifetime but he is now instructed to stay on 325 mg QD (until advised otherwise by neurology) due to his CVA in June 2022 He is again reminded that he will need prophylactic Abx for any dental or invasive procedure for the rest of his life He has completed cardiac rehab at [facility] a few months ago Follow up with cardiology as scheduled (3) Left atrial dilatation: Code(s): I51.7 - Cardiomegaly Plan: (+) LA dilatation arising from his mitral valve disorder/degeneration. There is also a mildly dilated ascending aorta seen on echocardiogram but LV systolic and diastolic function are preserved /normal and RV systolic pressure is also normal Will continue to follow this up with cardiac echo routinely - he reportedly had a follow up echocardiogram done in [place] 1 to 2 months ago that showed no significant changes from last year's echo (4) Persistent atrial fibrillation: Comment: S/P Maze procedure Code(s): I48.19 - Other persistent atrial fibrillation Plan: Is currently in sinus rhythm and rate-controlled on Metoprolol ER 12.5 mg QD Continue Aspirin 325 mg QD; is also on Eliquis 5 mg BID since his CVA in June 2022 (5) Vitamin D deficiency: Code(s): E55.9 - Vitamin D deficiency, unspecified Plan: Patient is advised that his Vitamin D level is very low on his recent labs - he now admits that he has not been taking his Vitamin D at all recently Will have him start back on Vitamin D3 2000 units QD (6) Allergic rhinitis: Code(s): J30.9 - Allergic rhinitis, unspecified Qualifiers: Allergic rhinitis trigger: pollen Allergic rhinitis seasonality: seasonal Qualified Code(s): J30.1 - Allergic rhinitis due to pollen Plan: Continue Loratadine 10 mg QD PRN (7) 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): Code(s): I69.398 - Other sequelae of cerebral infarction; F06.30 - Mood disorder due to known physiological condition, unspecified Plan: Patient has been advised that considering what happened to him over the past couple of years and the significant impact that his recent CVA had on him and the degree of impairment that he has been going through, it is not at all unusual for one to start experiencing symptoms of depression Advised that he should consider taking something to help with his mood and this may also help him recover from his incapacities faster Patient continues to decline Rx for depression - states that he will think about it and call if he decides to start taking Rx but in the meantime, would like to continue trying to cope by staying active and staying busy Plan To return as scheduled in 6 months for his next annual physical examination Orders: Orders Complete Blood Count Auto Diff 6 Months D64.9 - Anemia, unspecified, Z00.00 - Encounter for general adult medical examination without abnormal findings Lipid Panel 6 Months E78.00 - Pure hypercholesterolemia, unspecified, Z00.00 - Encounter for general adult medical examination without abnormal findings TSH reflex Free T4 6 Months E78.00 - Pure hypercholesterolemia, unspecified, Z00.00 - Encounter for general adult medical examination without abnormal findings Prostate Specific Antigen 6 Months N40.0 - Benign prostatic hyperplasia without lower urinary tract symptoms, Z00.00 - Encounter for general adult medical examination without abnormal findings Comprehensive [place]. Panel Fast 6 Months E78.00 - Pure hypercholesterolemia, unspecified, Z00.00 - Encounter for general adult medical examination without abnormal findings UA CC w/rflx Micro + Cult 6 Months R30.0 - Dysuria, Z00.00 - Encounter for general adult medical examination without abnormal findings Vitamin D 25-OH Total 6 Months E55.9 - Vitamin D deficiency, unspecified, Z00.00 - Encounter for general adult medical examination without abnormal findings Coding Level of Care Code Est Pt Level 4 (57743) Diagnoses Cerebrovascular accident (CVA) due to embolism of left posterior cerebral artery I63.432 CVA mechanism: embolism Precerebral and cerebral artery: posterior cerebral artery Laterality of affected vessel: left 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 Left atrial dilatation I51.7 Persistent atrial fibrillation I48.19 Vitamin D deficiency E55.9 Seasonal allergic rhinitis due to pollen J30.1 Allergic rhinitis trigger: pollen Allergic rhinitis seasonality: seasonal 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
[2023-09-03 11:07] VITALS: BP 102/64; PULSE 60; O2SAT 97; BMI 26.2
== END 2023-09-03 11:58 | disposition home or self-care (01) ==
PROVIDERS: PCP Internal Medicine; Visit Provider Internal Medicine
DX: I63.432 Cerebral infarction due to embolism of left posterior cerebral artery (principal); I48.19 Other persistent atrial fibrillation; I34.1 Nonrheumatic mitral (valve) prolapse; I51.7 Cardiomegaly; E55.9 Vitamin D deficiency, unspecified; J30.1 Allergic rhinitis due to pollen; I69.398 Other sequelae of cerebral infarction; F06.30 Mood disorder due to known physiological condition, unspecified
CPT/HCPCS: 99214

== ENCOUNTER 2023-12-28 15:20 | Outpatient (AMB) | payer BC, SELFPAY ==
--- NOTE | 2023-12-28 15:22 | MHC.OFFVIS ---
Vital Signs 12/28/23 15:29 Height 5 ft 10 in Weight 180 lb BMI 25.8 BP 95/53 L Blood Pressure Location Lt brachial Position Sitting Pulse 71 Intake Visit Reasons: Colonoscopy screening Intake Note: Patient new consult for 2 nd pre colonoscopy screening Patient denies any GI issues. Research Nutritionist Required: No Accompanied by: Self / Same As Patient Allergies poison adolfo extract Allergy (Severe, Verified 12/28/23 15:25) Blister cat dander [CATS] Allergy (Mild, Verified 12/28/23 15:25) SNEEZING/ITCHY EYES Environmental Allergy (Mild, Uncoded 09/03/23 11:32) SNEEZING/ITCHY EYES [facility] HPI Colonoscopy screening: Details: LAST COLONOSCOPY 01/26/2020 Findings: Terminal Ileum ? Not evaluated Cecum ? Normal Ascending Colon ? A 12 to 15 mm sessile polyp inadvertantly removed with a cold snare. Mild bleeding at polypectomy site controlled with cautery using the snare tip. Moderate diverticulosis. Transverse Colon - Moderate diverticulosis Descending Colon ? Severe diverticulosis Sigmoid Colon ? A 4-5 mm sessile polyp removed with a cold biopsy. A 12 -15 mm hemorrhagic appearing pedunculated polyp removed with a hot snare. Severe diverticulosis with luminal narrowing. Rectum ? Normal Ano-rectum - Moderate internal hemorrhoids Colon preparation: Good after some irrigation. Impression and Post Procedure Diagnosis: Colonoscopy Findings: Three polyps removed (Two were 12 to 15 mm in size) Moderate to severe diverticulosis seen in the entire colon Moderate hemorrhoids on retroflexed exam. Plan: Await pathology results) Patient to schedule a FU appointment in the GI Clinic with CRISPIN Dubose. Repeat Colonoscopy interval based on path results ? in 3 years if polyps are adenomatous and in 5 years if polyps are hyperplastic (due to past history of adenomatous colon polyps) Above findings were reviewed with the patient and colon polyps and diverticulosis handouts were given in the discharge area BIOPSIES SHOWED: A. Colon, ascending, polypectomy: Fragments of food/vegetable material; no colonic tissue seen. B. Colon, sigmoid, polypectomies: - Tubular adenoma; no high grade dysplasia or carcinoma seen. - Hyperplastic mucosal polyp. 68 year old? male with past medical history of mitral valve repair, status post CVA, history of AFib status post ablation, hyperlipidemia, hypertension is here today for initial consultation. Patient was sent to us by his PCP. Last colonoscopy in 2019 as mentioned above in HPI. ? Patient denies any gastrointestinal symptoms in the past or at present.? Denies any personal or family history of gastrointestinal disease or CRC.? Denies history of difficulty with sedation or anesthesia in the past.? Negative for history of sleep apnea.? Denies any history of cardiac, renal, pulmonary, or hepatic disease.?? No history of infectious? diseases like hepatitis A, B, C, HIV or tuberculosis.? Patient is on aspirin and Eliquis. History open heart surgery, for myxomatous mitral valve and ablation in 2021 and CVA in June of 2022 tPA was given at bedtime and patient was started on coagulation therapy. [facility] Medical History Cerebrovascular accident (CVA) Vitamin D deficiency Left atrial dilatation Mitral valve prolapse Tubular adenoma of colon Allergic rhinitis Overweight (BMI 25.0-29.9) Surgical History Hx of mitral valve repair (~02/22/22) History of colonoscopy History of esophagogastroduodenoscopy (EGD) History of inguinal hernia repair History of tonsillectomy and adenoidectomy H/O right wrist surgery Family History Father Prostate cancer Mother Alzheimers disease Sister Multiple sclerosis Non-Hodgkin lymphoma Social History Housing: House Alcohol intake: current Alcohol intake frequency: a few times a month Patient Tobacco Use Status: Former Tobacco user e-Cigarette/Vaping Use: Never Used Second Hand Smoke Exposure: Yes service: No Current occupational status: employed Cognitive needs: No Hearing needs: No Vision needs: No Review of Systems Const Denies weight gain and Denies weight loss ENT Reports no additional complaints, Denies dysphagia and Denies odynophagia Card Reports no additional complaints Resp Reports no additional complaints GI Denies abdominal pain, Denies belching, Denies melena, Denies bloating, Denies change in bowel habits, Denies dysphagia, Denies excessive flatus, Denies dyspepsia, Denies heartburn, Denies diarrhea, Denies loose stools, Denies nausea, Denies odynophagia and Denies vomiting Reports no additional complaints Musc Reports no additional complaints Neuro Reports no additional complaints Psych Reports no additional complaints Endo Reports no additional complaints Physical Exam Vital Signs: Last Vital Signs Pulse 71 12/28/23 15:29 BP 95/53 L 12/28/23 15:29 BMI result Body Mass Index 25.8 Const General: healthy appearing, no acute distress and well developed Nutritional Appearance: well nourished Orientation/consciousness: patient oriented x3 Resp Effort & Inspection: normal respiratory effort, able to speak in complete sentences, no tracheal deviation and symmetric chest movement Auscultation: clear to auscultation bilaterally Cardio Rate: regular rate GI Inspection: Yes normal to inspection and No distended Palpation (GI): Soft to palpation, not firm, nontender and No hepatosplenomegaly present Auscultation: normal bowel sounds General: Yes no CVA tenderness Back/Spine/Pelvis Back: no CVA tenderness Skin General skin exam: elasticity normal, turgor normal and dry skin Neuro General: patient oriented x3 Psych Appearance: grossly normal Mental Status: mental status grossly normal Assessment & Plan Assessment & Plan (1) Tubular adenoma of colon: Code(s): D12.6 - Benign neoplasm of colon, unspecified Category: Medical (2) Screen for colon cancer: Code(s): Z12.11 - Encounter for screening for malignant neoplasm of colon Plan Patient denies any GI, respiratory symptoms.? Denies any issues with anesthesia in the past.? Denies any history of sleep apnea.? No history infectious diseases in the past or present.? Patient is on Eliquis, status post open heart surgery in 02/14/2022. Patient had CVA in June of 2022. Patient had tPA and was referred by his digital media producer to neurologist at [facility]. Patient's neurologist is Emma Bryan phone number [phone]. Patient was seen by Cardiology in [facility]. Patient's digital media producer is Dr. Day's phone number [phone]. Please call his digital media producer for clearance. No family or personal history of colon cancer.? Patient denies melena, hematochezia, unintentional weight loss or ribbon like stools.? Discussed at length the pre-procedure,? prep, diet & medications as well as what to expect prior, during and after the procedure.?? Stressed the importance of good bowel prep.? Recommended the use of Vaseline or Calmoseptine OTC & baby wipes with bowel movements to promote comfort.? ?Patient verbalizes understanding and agrees to plan of care.? He was given the opportunity to ask questions and all questions answered.? We will see him after the procedure.? Coding Level of Care Code New Pt Level 3 (62600) Diagnoses Tubular adenoma of colon D12.6 Screen for colon cancer Z12.11 Time Spent (min) 40 Comment 30 minutes spent with patient and additional 10 minutes spent reviewing his records
[2023-12-28 15:29] VITALS: BP 95/53; PULSE 71; BMI 25.8
== END 2023-12-28 16:03 | disposition home or self-care (01) ==
PROVIDERS: PCP Internal Medicine; Visit Provider Nurse Practitioner Family
DX: D12.6 Benign neoplasm of colon, unspecified (principal); Z12.11 Encounter for screening for malignant neoplasm of colon
CPT/HCPCS: 99203

== ENCOUNTER → 2023-12-28 15:20 | Outpatient (BNVA) | payer BC, SELFPAY | PROVIDERS: PCP Internal Medicine; Visit Provider Nurse Practitioner Family ==

== ENCOUNTER 2024-03-11 09:43 | Outpatient (AMB) | payer BC, SELFPAY ==
--- NOTE | 2024-03-11 09:46 | A.OFFPC_ITS ---
Vital Signs 03/11/24 09:47 Height 5 ft 10 in Weight 183 lb 2 oz BMI 26.3 BP 108/66 Blood Pressure Location Lt brachial Position Sitting Pulse 61 Pulse Source Pulse Oximeter Pulse Oximetry (%) 96 Oxygen Delivery Method Room Air Intake Visit Reasons: PE Taxicab Coordinator Required: No Accompanied by: Self / Same As Patient Allergies poison adolfo extract Allergy (Severe, Verified 03/11/24 10:18) Blister cat dander [CATS] Allergy (Mild, Verified 03/11/24 10:18) SNEEZING/ITCHY EYES Environmental Allergy (Mild, Uncoded 03/11/24 10:18) SNEEZING/ITCHY EYES Medication List - Last Reconciled 03/11/24 by Tico Reynolds MD apixaban (Eliquis) 5 mg PO BID 10 days aspirin 325 mg PO DAILY atorvastatin 20 mg PO BEDTIME 90 days cholecalciferol (vitamin D3) 50 mcg PO DAILY metoprolol succinate ER 12.5 mg (1/2 x 25 mg) PO DAILY 90 days Tobacco use date assessed: 03/11/24 Fall risk assessment: No Falls in past year Last assessed Fall Risk: 03/11/24 Dental Screening Dental Screen Date: 03/11/24 Did you have a dental visit in the last 12 months?: Yes Did you have a dental problem in the last 6 months where you did not have access to dental care?: No Was dental information given to patient?: Patient has dentist HPI PE HPI Details Patient comes in today for his annual physical examination States that he feels okay He denies any headaches or dizziness Denies any chest pains, no SOB No nausea/vomiting, no abdominal pain No change in bowel habits noted Denies any acute urinary symptoms States that he is still going to speech therapy and just had another round of cognitive tests done to gauge whether there has been any improvement over the past year but he does not have the results of these tests yet States that he is still able to walk his dog regularly everyday and has no issues with mobility but he still gets tired easily and does not really do much else in terms of physical activity States that he needs his Amoxicillin Rx for prophylaxis refilled He was not able to get his previously ordered labs done yet He is scheduled to have his repeat colonoscopy done at [facility] [place] 2024 [facility] Medical History Cerebrovascular accident (CVA) Vitamin D deficiency Left atrial dilatation Mitral valve prolapse Tubular adenoma of colon Allergic rhinitis Overweight (BMI 25.0-29.9) Surgical History Hx of mitral valve repair (~02/22/22) History of colonoscopy History of esophagogastroduodenoscopy (EGD) History of inguinal hernia repair History of tonsillectomy and adenoidectomy H/O right wrist surgery Family History Father Prostate cancer Mother Alzheimers disease Sister Multiple sclerosis Non-Hodgkin lymphoma Social History Housing: House Alcohol intake: current Alcohol intake frequency: a few times a month Patient Tobacco Use Status: Former Tobacco user e-Cigarette/Vaping Use: Never Used Second Hand Smoke Exposure: Yes service: No Current occupational status: employed Cognitive needs: No Hearing needs: No Vision needs: No Questionnaire PHQ-9 Over the last 2 weeks, how often have you been bothered by any of the following problems? 1. Little interest or pleasure in doing things: not at all 2. Feeling down, depressed, or hopeless: not at all 3. Trouble falling or staying asleep, or sleeping too much: not at all 4. Feeling tired or having little energy: not at all 5. Poor appetite or overeating: not at all 6. Feeling bad about yourself - or that you are a failure or have let yourself or your family down: not at all 7. Trouble concentrating on things, such as reading the newspaper or watching television: not at all 8. Moving or speaking so slowly that other people could have noticed. Or the opposite - being so fidgety or restless that you have been moving around a lot more than usual: not at all 9. Thoughts that you would be better off or of hurting yourself in some way: not at all Total score: 0 Depression Screening Interpretation: Negative Depression Screening Done: Yes 35333 - PHQ-9 Billing: Yes Source: Developed by Drs. Kody Rouse, Renée B.W. Mihsa Hatch and colleagues, with an educational malik from [employer]. Thrive Questionnaire Date Thrive assessed: 03/11/24 I am a: Patient What is your living situation today?: I have a steady place to live Within the past 12 months, did the food you bought not last and you didn't have the money to get more?: Never true Within the past 12 months, did you worry whether your food would run out before you got money to buy more?: Never true Do you have trouble paying for medicines?: No Do you have trouble getting transportation to medical appointments?: No Do you have trouble paying your heating and electricity bill?: I choose not to answer this question Do you have trouble taking care of your child, family member or friend?: I choose not to answer this question Do you have trouble with day-to-day activities such as bathing, preparing meals, shopping, managing finances, etc.?: I choose not to answer this question Are you currently unemployed and looking for a job?: I choose not to answer this question Are you interested in more education?: I choose not to answer this question Please select the resources that you would like help with: None Currently or been in a relationship where the following occur: I choose not to answer THRIVE Score: 0 AUDIT C Alcohol Use Questionnaire (AUDIT-C) 1. How often do you have a drink containing alcohol?: Never 3. How often do you have six or more drinks on one occasion?: Never Total Score: 0 Score Reviewed/Action Taken: Yes ZAKIYA-7 AMB Questionnaire ZAKIYA-7 Date ZAKIYA - 7 assessed: 03/11/24 Feeling nervous, anxious, or on edge: 0 = Not at all Not being able to stop or control worryin = Not at all Worrying too much about different things: 0 = Not at all Trouble relaxin = Not at all Being so restless that it is hard to sit still: 0 = Not at all Becoming easily annoyed or irritable: 0 = Not at all Feeling afraid as if something awful might happen: 0 = Not at all Total ZAKIYA-7 score (0-4 normal; 5-9 mild; 10-14 moderate; 15-21 severe): 0 Source: Developed by Drs. Kody Rouse, Misha Murdock and colleagues, with an educational malik from [employer]. ZAKIYA-7 Assessment Billing ZAKIYA-7 Assessment Tool: ZAKIYA-7 Assessment 24164 Review of Systems Const Denies chills, Denies difficulty sleeping, Reports fatigue (mild; states that he still gets tired easily), Denies fever(s) and Denies headache(s) Eyes Reports blurry vision (in the right eye), Denies diplopia, Denies eye pain and Reports photophobia (most due to fluorescent lighting) ENT Denies dysphagia, Reports vertigo (occasionally), Denies otalgia, Denies headac he(s), Denies neck pain, Denies odynophagia, Reports tinnitus (on and off) and Denies sore throat Card Denies chest pain, Denies palpitations and Reports dyspnea on exertion (mild) Resp Denies cough, Reports dyspnea on exertion (mild) and Denies wheezing GI Denies abdominal pain, Denies constipation, Denies dysphagia, Denies diarrhea, Denies nausea, Denies odynophagia and Denies vomiting Denies difficulty urinating, Denies dysuria, Denies nocturia and Denies urinary frequency Musc Denies abnormal gait, Denies back pain and Denies neck pain Skin/Breast Denies rash Neuro Denies Abnormal speech present (still has issues with expressive aphasia at times), Denies abnormal gait, Reports confusion (at times), Reports vertigo (occasionally), Denies headache(s) and Reports memory loss (mostly short-term memory loss - feels this is getting worse recently) Psych Reports confusion (at times) and Reports memory loss (mostly short-term memory loss - feels this is getting worse recently) Endo Reports fatigue (mild; states that he still gets tired easily) and Denies palpitations Aller/Immun Denies wheezing Physical exam (Primary Care) Vital Signs: Last Vital Signs Pulse 61 03/11/24 09:47 BP 108/66 03/11/24 09:47 Pulse Ox 96 03/11/24 09:47 Oxygen Delivery Method Room Air 03/11/24 09:47 BMI result Body Mass Index 26.3 Tobacco/Smoking Status: Tobacco use Status Tobacco use date assessed 03/11/24 03/11/24 09:49 Patient Tobacco Use Status Former Tobacco user 03/11/24 09:49 e-Cigarette/Vaping Use Never Used 03/11/24 09:49 PHQ-9: PHQ-9 Score PHQ-9: Total score 0 03/11/24 10:35 Depression Screening Interpretation: Negative Thrive Assessment: Date of Thrive Assessment Date Thrive assessed 03/11/24 03/11/24 09:49 Currently or been in a relationship where the following occur: I choose not to answer Const General: no acute distress, alert and confusion (at times) Orientation/consciousness: confusion (at times) HENMT Head: Yes normocephalic and Yes atraumatic Ears: TM's normal bilaterally and EAC's normal General nose exam: No nasal discharge present Face and sinus: Yes normal facial exam and Yes sinuses nontender Teeth and gingiva: dentition normal Throat: Yes posterior oropharynx normal and Yes tonsils normal (no TP congestion) Eyes Eyelids: Yes eyelids normal Conjunctivae: conjunctivae normal Pupils: Equal, round and reactive pupils present EOM: EOMs intact bilaterally Direct Ophthalmoscopy: photophobia (most due to fluorescent lighting) Neck Neck: Yes no lymphadenopathy and Yes supple Thyroid: Thyroid normal Resp Auscultation: clear to auscultation bilaterally, no rales and no wheezes Cardio Rate: regular rate Rhythm: regular rhythm Heart sounds: no murmurs GI Palpation (GI): Soft to palpation and nontender Auscultation: normal bowel sounds General: Yes no CVA tenderness Back/Spine/Pelvis Back: no CVA tenderness Thoracic/Lumbar Spine: thoracic and lumbar spine normal to inspection Skin Lesions: no lesions Rashes: no rashes Neuro Other: Had MOCA testing done in October 2022 - patient scored 25 out of 30, mostly because he failed on the delayed recall part of the exam - was unable to recall any of the 5 words previously mentioned General: confusion (at times) Cranial nerves: Yes Equal, round and reactive pupils present Cognition (Neuro): normal cognition Speech: No Abnormal speech present (still has issues with expressive aphasia at times) Gait exam (Neuro): Normal gait present Extrem General: Yes no clubbing, cyanosis or edema Office Procedures Flu Questionnaire Does the patient have a severe egg allergy?: No Immunizations Fluarix Triv [id number] (PF) 45 mcg (15 mcg x 3)/0.5 mL IM syringe Performing Provider: Tico Reynolds MD [facility] Documented (not given) by: KYLEE Camacho on 03/11/24 09:59 Reason Not Given: Patient Refused Coding Level of Care Code Est Pt Prev Care >65y(40261) Diagnoses Annual physical exam Z00.00 Cerebrovascular accident (CVA) due to embolism of left posterior cerebral artery I63.432 CVA mechanism: embolism Laterality of affected vessel: left Precerebral and cerebral artery: posterior cerebral artery 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 Left atrial dilatation I51.7 Persistent atrial fibrillation I48.19 Vitamin D deficiency E55.9 Seasonal allergic rhinitis due to pollen J30.1 Allergic rhinitis seasonality: seasonal Allergic rhinitis trigger: pollen 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 Additional Codes ZAKIYA-7 Assessment Billing - ZAKIYA-7 Assessment Tool: ZAKIYA-7 Assessment 47371 ([id number]) Assessment & Plan Assessment & Plan (1) Annual physical exam: Code(s): Z00.00 - Encounter for general adult medical examination without abnormal findings Category: Medical Plan: Check labs BRUNO - previous lab orders are printed out and handed to patient to help remind him to get these done soon He is scheduled for his repeat colonoscopy in May 2024 (2) Cerebrovascular accident (CVA): Comment: S/P tPA (Tenecteplase) on 07/22/2022 at 12:18 pm Code(s): I63.9 - Cerebral infarction, unspecified Category: Medical Qualifiers: CVA mechanism: embolism Laterality of affected vessel: left Precerebral and cerebral artery: posterior cerebral artery Qualified Code(s): I63.432 - Cerebral infarction due to embolism of left posterior cerebral artery Plan: S/P tPA in 06/2022 Brain MRI at the time revealed findings of acute left IMPORT CLERK infarct, involving primarily the left hippocampus and left occipital lobe Patient has had some visual impairment in his right eye and some degree of expressive aphasia as well as issues with short-term memory recall (memory loss) but has no other significant physical symptoms or sequelae from his CVA His friends and family feel that his memory recall has been getting worse over the past couple of years Continue Aspirin 325 mg QD and Eliquis 5 mg BID and Pantoprazole 40 mg QD for GI prophylaxis Continue Atorvastatin 20 mg QD for additional risk reduction Follow-up with Neurology and Ophthalmology as scheduled - he has been reminded that he is NOT allowed to drive until he is cleared by ophthalmology and neurology (3) Myxomatous mitral valve: Comment: S/P mitral valve repair, left atrial appendage amputation, biatrial Maze and closure of PFO (Dr. Hernandez) at [facility] in [place] on 02/22/2022 Code(s): I34.1 - Nonrheumatic mitral (valve) prolapse Category: Medical Plan: Echocardiogram in January 2021 first revealed a myxomatous mitral valve with posterior mitral valve leaflet prolapse and with moderate mitral valve regurgitation; there was also a mildly dilated ascending aorta and mild aortic regurgitation but LV systolic and diastolic function were normal and RV systolic pressure was also normal with no pericardial effusion noted Patient underwent mitral valve repair with Maze and PFO closure on 02/22/22 He was on Coumadin and Maze x 1 month post-op; was then transitioned over to Eliquis 5 mg BID and Aspirin 325 mg QD Continue Metoprolol ER 12.5 mg (1/2 tablet of 25 mg) QD The original plan was to keep him on Aspirin 325 mg x 3 months, then decrease it to 81 mg QD lifetime but he is now instructed to stay on 325 mg QD (until advised otherwise by neurology) due to his CVA in June 2022 He is again reminded that he will need prophylactic Abx for any dental or invasive procedure for the rest of his life - Amoxicillin Rx refilled today He completed cardiac rehab at [facility] earlier this year Follow up with cardiology as scheduled (4) Left atrial dilatation: Code(s): I51.7 - Cardiomegaly Category: Medical Plan: (+) LA dilatation arising from his mitral valve disorder/degeneration. There is also a mildly dilated ascending aorta seen on echocardiogram but LV systolic and diastolic function are preserved /normal and RV systolic pressure is also normal Will continue to follow this up with cardiac echo routinely - he reportedly had a follow up echocardiogram done in [place] a few months ago that showed no significant changes from last year's echo findings (5) Persistent atrial fibrillation: Comment: S/P Maze procedure Code(s): I48.19 - Other persistent atrial fibrillation Category: Medical Plan: Corrected with Maze procedure He currently remains in sinus rhythm and is rate-controlled on Metoprolol ER 12.5 mg QD Continue Aspirin 325 mg QD; is also on Eliquis 5 mg BID since his CVA in June 2022 (6) Vitamin D deficiency: Code(s): E55.9 - Vitamin D deficiency, unspecified Category: Medical Plan: Continue Vitamin D3 2000 units QD (7) Allergic rhinitis: Code(s): J30.9 - Allergic rhinitis, unspecified Category: Medical Qualifiers: Allergic rhinitis seasonality: seasonal Allergic rhinitis trigger: pollen Qualified Code(s): J30.1 - Allergic rhinitis due to pollen Plan: Continue Loratadine 10 mg QD PRN (8) 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): Code(s): I69.398 - Other sequelae of cerebral infarction; F06.30 - Mood disorder due to known physiological condition, unspecified Category: Medical Plan: Patient has been advised that he should consider taking something to help with his mood and this may also help him recover from his incapacities faster He continues to decline Rx for depression - states that he will call if he decides to start taking Rx but in the meantime, would like to continue trying to cope by staying active and staying busy Plan Follow up in 6 months Orders: Orders Influenza [id number] Immunization Today Z23 - Encounter for immunization Medications: New amoxicillin Take 4 capsules 2 hours before procedure 2,000 mg (4 x 500 mg) PO ONCE 4 caps 3RF 1 day
[2024-03-11 09:47] VITALS: BP 108/66; PULSE 61; O2SAT 96; BMI 26.3
== END 2024-03-11 10:28 | disposition home or self-care (01) ==
PROVIDERS: PCP Internal Medicine; Visit Provider Internal Medicine
DX: Z00.00 Encounter for general adult medical examination without abnormal findings (principal); I63.432 Cerebral infarction due to embolism of left posterior cerebral artery; I48.19 Other persistent atrial fibrillation; I34.1 Nonrheumatic mitral (valve) prolapse; I51.7 Cardiomegaly; E55.9 Vitamin D deficiency, unspecified; J30.1 Allergic rhinitis due to pollen; I69.398 Other sequelae of cerebral infarction; F06.30 Mood disorder due to known physiological condition, unspecified

== ENCOUNTER → 2024-03-11 09:43 | Outpatient (BNVA) | payer BC, SELFPAY | PROVIDERS: PCP Internal Medicine; Visit Provider Internal Medicine | DX: Z00.00 Encounter for general adult medical examination without abnormal findings (principal); I34.1 Nonrheumatic mitral (valve) prolapse; I51.7 Cardiomegaly; I48.19 Other persistent atrial fibrillation; E55.9 Vitamin D deficiency, unspecified; J30.1 Allergic rhinitis due to pollen; I69.398 Other sequelae of cerebral infarction; F06.30 Mood disorder due to known physiological condition, unspecified; Z79.01 Long term (current) use of anticoagulants; Z79.82 Long term (current) use of aspirin; Z79.899 Other long term (current) drug therapy; Z28.21 Immunization not carried out because of patient refusal | CPT/HCPCS: 90471; 96127 ==

== ENCOUNTER 2024-06-16 10:32 | Day surgery (SDC) | payer BC, SELFPAY ==
[2024-06-16 11:03] VITALS: BMI 25.4
--- NOTE | 2024-06-16 11:08 | MHC.SHP ---
Pre-Procedural Eval Section A - 24 Hr Update-Section A only Date of Service: 06/16/24 The patient is an INPATIENT: No The patient has been examined within 24 hours of the surgical procedure. The History & Physical has been completed within 30 days and I have reviewed it.: No Section B - Complete if H&P > 30 days Chief Complaint: Surveillance for colon polyps Relevant Family History (Specify if Yes): No Relevant Social History: Tobacco Use (Former smoker) Medical History: Significant History (Cerebrovascular accident (CVA) Vitamin D deficiency Left atrial dilatation Mitral valve prolapse Tubular adenoma of colon Allergic rhinitis Overweight (BMI 25.0-29.9)) History of Previous Operations: Relevant previous surgery/procedure and date(s) (Hx of mitral valve repair (~02/22/22) History of colonoscopy History of esophagogastroduodenoscopy (EGD) History of inguinal hernia repair History of tonsillectomy and adenoidectomy H/O right wrist surgery) Allergies: Allergies Allergy/AdvReac Type Severity Reaction Status Date / Time poison adolfo extract Allergy Severe Blister Verified 06/16/24 11:02 cat dander [CATS] Allergy Mild SNEEZING/ITCHY Verified 06/16/24 11:02 EYES Environmental Allergy Mild SNEEZING/ITCHY Uncoded 03/11/24 10:18 EYES Review of Systems Sugical H&P ROS: Negative: Constitution, Cardiovascular, Respiratory and Gastrointestinal Exam Surgical H&P Exam: Normal: Heart, Normal: Lungs, Normal: Extremities and Normal: Abdomen Plan Diagnosis/Plan: Unchanged I have reviewed the history and physical and performed a pertinent physical examination on my patient. No changes have occurred unless specified. Time Spent With Patient Time: Total time managing care of this patient today ____ minutes.
[2024-06-16 11:12] VITALS: BP 111/60; PULSE 77; RESP 15; TEMP 37.1; O2SAT 97
[2024-06-16] MEDS: Lactated Ringers 1,000 ML 50 ML IVCONT (11:29)
[2024-06-16] MEDS: Ampicillin Sodium 2 GM in 0.9 % Sodium Chloride 100 ML IV (11:30)
--- NOTE | 2024-06-16 11:31 | HO.ANESPROP2 ---
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) (Acute) Allergic rhinitis (Acute) Persistent atrial fibrillation (Acute) Myxomatous mitral valve (Acute) Viral illness (Acute) Ex-smoker (Acute) Screening for lung cancer (Acute) Finger pain, right (Acute) Systolic murmur at cardiac apex (Acute) Pain of left heel (Acute) Right hand pain (Acute) Annual physical exam (Acute) Cerebrovascular accident (CVA) (Acute) Left atrial dilatation (Acute) Mitral valve prolapse (Acute) Vitamin D deficiency (Acute) Tubular adenoma of colon (Acute) Allergic rhinitis (Acute) Overweight (BMI 25.0-29.9) (Acute) Past Medical History Medical History (Updated 06/16/24 @ 12:22 by Caitie Boo, RN) Short-term memory loss Hx of renal calculi Cerebrovascular accident (CVA) Vitamin D deficiency Left atrial dilatation Mitral valve prolapse Tubular adenoma of colon Allergic rhinitis Overweight (BMI 25.0-29.9) Family History Family History Father Prostate cancer Mother Alzheimers disease Sister Multiple sclerosis Non-Hodgkin lymphoma Family history of problems with anesthesia: No Surgical History Surgical History Hx of mitral valve repair (~02/22/22) History of colonoscopy History of esophagogastroduodenoscopy (EGD) History of inguinal hernia repair History of tonsillectomy and adenoidectomy H/O right wrist surgery History of Problems with Anesthesia: No Social History Social History Housing: House Alcohol intake: current Alcohol intake frequency: former alcohol drinker Patient Tobacco Use Status: Former Tobacco user e-Cigarette/Vaping Use: Never Used Second Hand Smoke Exposure: Yes Use of substances other than those prescribed or required for medical reasons: No Are you DNR?: No Advance Directives: No Advance Directives Information Provided: Yes service: No Current occupational status: employed Cognitive needs: No Hearing needs: No Vision needs: No Meds Allergies Allergy/AdvReac Type Severity Reaction Status Date / Time poison adolfo extract Allergy Severe Blister Verified 06/16/24 11:02 cat dander [CATS] Allergy Mild SNEEZING/ITCHY Verified 06/16/24 11:02 EYES Environmental Allergy Mild SNEEZING/ITCHY Uncoded 03/11/24 10:18 EYES Active Medications: Current Medications Lactated Ringer's (Lr) 1,000 mls @ 50 mls/hr IVCONT .Q20H RULA Last Admin: 06/16/24 11:29 Dose: 50 mls/hr Home Medications ?Medication ?Instructions ?Recorded ?Confirmed ?Last Taken ?Type aspirin 325 mg tablet 325 mg PO DAILY 03/13/22 06/16/24 06/16/24 08:30 History cholecalciferol (vitamin D3) 50 50 mcg PO DAILY 12/28/23 06/16/24 Unknown History mcg (2,000 unit) capsule Exam Height,Weight and Vital Signs: Height 5 ft 10 in Weight 80.286 kg Last Vital Signs Temp 98.7 F 06/16/24 11:12 Pulse 77 06/16/24 11:12 Resp 15 06/16/24 11:12 BP 111/60 06/16/24 11:12 Pulse Ox 97 06/16/24 11:12 O2 Del Method Room Air 06/16/24 11:12 Airway Mallampati Class: II TM Dist: >3cm Neck ROM: Full Loose/Missing/Broken Teeth: No Heart: ok Lungs: ok Assessment and Plan Assessment Anesthesia Assessment: Anesthesia Plan Discussed and Chart Reviewed Final Anesthetic Review Family History of Problems with Anesthesia: No History of Problems with Anesthesia: No NPO: Yes ASA Class: III Final Preanesthetic Review: No Changes in Pt Med Stat, Meds/Allgs Chart Reviewed, Consent Obtained/Reviewed and Anes Risks/Benef Reviewed Patient Risk: Intermediate Procedure Risk: Low Anesthetic Plan Anesthetic Plan: MAC: and Agree w/ Assess. and Plan Disposition: Standard PACU
--- NOTE | 2024-06-16 13:02 | HO.OPN-COLON ---
Colonoscopy Operative Note Operative Note Date of Service: 06/16/24 Narrative: COLONOSCOPY TILL CECUM WITH surveillance for colon polyps Pre-op diagnosis: Surveillance for colon polyps . Post-op diagnosis:? colon polyp, Diverticulosis, hemorrhoids Endoscopist:? Monet Shirley MD Anesthesia:?MAC Consent: Indications for the procedure and potential complications of bleeding, perforation, reaction to medications and missed diagnosis were discussed with the patient and informed consent was obtained. Instrument: Olympus CF H 190 L variable stiffness adult colonoscope Monitoring: Vital signs and clinical assessment, intermittent blood pressure monitoring, continuous EKG monitoring, Pulse oximetry and Carbon Dioxide monitoring were done throughout the procedure. Please see anesthesia flowsheet. Colon withdrawl time was 18 minutes. Procedure: The patient was placed in the left lateral decubitis position and pre-procedure medications were administered. After a digital rectal examination of the ano-rectum, the video colonoscope was inserted into the rectum and advanced through the colon to the cecum. The colonoscope was slowly withdrawn in a retrograde panoramic fashion and the colon mucosa was carefully examined including a retroflexed view of the rectum. Findings and interventions are described below. Procedure Difficulty: Colon was long and tortuous and there was some loop formation Findings: Terminal Ileum: Not evaluated Cecum: Normal Ascending Colon: Moderate diverticulosis throughout the entire colon Transverse Colon: Moderate diverticulosis throughout the entire colon Descending Colon: Moderate diverticulosis throughout the entire colon Sigmoid Colon: Severe diverticulosis with luminal narrowing Rectum: A 3-4 mm diminutive appearing polyp - removed with a cold biopsy Ano-rectum: Moderate internal hemorrhoids Colon preparation: Good after some irrigation. [place] Bowel Preparation Scale Right colon; 2 Transverse colon: 2 Left colon; 2 (0 = Unprepared colon segment with mucosa not seen due to solid stool that cannot be cleared. 1 = Portion of mucosa of the colon segment seen, but other areas of the colon segment not well seen due to staining, residual stool and/or opaque liquid. 2 = Minor amount of residual staining, small fragments of stool and/or opaque liquid, but mucosa of colon segment seen well. 3 = Entire mucosa of colon segment seen well with no residual staining, small fragments of stool or opaque liquid) Impression and Post Procedure Diagnosis: Colonoscopy Findings: One small polyp was removed Moderate to severe diverticulosis seen in the entire colon Moderate hemorrhoids on retroflexed exam. Plan: Pt has a FU appointment on 06/30/34 with Albertina Bahena Np Repeat Colonoscopy in 5 years if polyps are adenomatous and due to history of adenomatous colon polyps Above findings were reviewed with the patient and relevant handouts were given and the discharge area. BIOPSIES SHOWED: Rectum, polypectomy: Hyperplastic mucosal polyp. Letter sent with biopsy results advising repeat colonoscopy in 5 years. Patient was placed on the colonoscopy recall list.
[2024-06-16 13:04] VITALS: BP 84/53; PULSE 67; RESP 17; TEMP 36.8; O2SAT 94
[2024-06-16 13:19] VITALS: BP 103/61; PULSE 62; RESP 16; O2SAT 96
== END 2024-06-16 14:03 | disposition home or self-care (01) ==
PROVIDERS: PCP Internal Medicine; Visit Provider Internal Medicine Gastroenterology
PROC: 0DJD8ZZ Inspection of Lower Intestinal Tract, Via Natural or Artificial Opening Endoscopic (ICD-10-PCS; CPT 45378; principal; 2024-06-16 12:10)
DX: Z12.11 Encounter for screening for malignant neoplasm of colon (principal); Z86.0101 Personal history of adenomatous and serrated colon polyps; K62.1 Rectal polyp; K57.30 Diverticulosis of large intestine without perforation or abscess without bleeding; K64.8 Other hemorrhoids; I51.7 Cardiomegaly; I34.1 Nonrheumatic mitral (valve) prolapse; Z86.73 Personal history of transient ischemic attack (TIA), and cerebral infarction without residual deficits; E55.9 Vitamin D deficiency, unspecified; J30.9 Allergic rhinitis, unspecified; E66.3 Overweight; Z68.25 Body mass index [BMI] 25.0-25.9, adult; Z79.82 Long term (current) use of aspirin; Z87.891 Personal history of nicotine dependence; Z79.899 Other long term (current) drug therapy
CPT/HCPCS: 45380; 88305; J0290; J2003; J2704

== ENCOUNTER → 2024-06-16 10:32 | Outpatient (BNV) | payer BC, SELFPAY | PROVIDERS: PCP Internal Medicine; Visit Provider Internal Medicine Gastroenterology | DX: Z12.11 Encounter for screening for malignant neoplasm of colon (principal); Z86.0100 Personal history of colon polyps, unspecified; K63.5 Polyp of colon; K57.90 Diverticulosis of intestine, part unspecified, without perforation or abscess without bleeding | CPT/HCPCS: 45380 ==

== ENCOUNTER 2025-01-06 12:42 | Outpatient (AMB) | payer BC, SELFPAY ==
[2025-01-06 12:45] VITALS: BP 90/68; PULSE 60; O2SAT 96; BMI 25.4
--- NOTE | 2025-01-06 12:45 | MHC.PC.OV ---
Vital Signs 01/06/25 12:45 Height 5 ft 10 in Weight 177 lb BMI 25.4 BP 90/68 Blood Pressure Location Lt brachial Position Sitting Pulse 60 Pulse Source Pulse Oximeter Pulse Oximetry (%) 96 Oxygen Delivery Method Room Air Intake Visit Reasons: 6 month f/u Liquor Commissioner Required: No Accompanied by: Self / Same As Patient Allergies poison adolfo extract Allergy (Severe, Verified 01/06/25 13:12) Blister cat dander (CATS) Allergy (Mild, Verified 01/06/25 13:12) SNEEZING/ITCHY EYES Environmental Allergy (Mild, Uncoded 01/06/25 13:12) SNEEZING/ITCHY EYES Medication List - Last Reconciled 01/06/25 by Tico Reynolds MD amoxicillin 2,000 mg (4 x 500 mg) PO ONCE 1 day apixaban (Eliquis) 5 mg PO BID 10 days Held on 06/16/24. Instructions: Resume on 06/17/24. aspirin 325 mg PO DAILY atorvastatin 20 mg PO BEDTIME 90 days cholecalciferol (vitamin D3) 50 mcg PO DAILY metoprolol succinate ER 12.5 mg (1/2 x 25 mg) PO DAILY 90 days Tobacco use date assessed: 01/06/25 Fall risk assessment: No Falls in past year Last assessed Fall Risk: 01/06/25 Dental Screening Dental Screen Date: 01/06/25 Did you have a dental visit in the last 12 months?: Yes Did you have a dental problem in the last 6 months where you did not have access to dental care?: No Was dental information given to patient?: Patient has dentist HPI 6 month f/u HPI Details Patient comes in today for his follow up visit States that he feels okay He denies any headaches or dizziness Denies any chest pains, no SOB No nausea/vomiting, no abdominal pain No change in bowel habits noted He is currently fairly independent with majority of his daily activities except in those that involve memory recall - states that he is able to walk his dog regularly everyday and has no issues with mobility but he still gets tired easily and does not really do much else in terms of physical activity or exercise Patient recently participated in a study on hazard detection in the driving simulator at [facility] in [place] and he reportedly passed his test with about 90% detection rate of motorcycles on the right side, which is the side affected by his visual field loss States that because of this, he was encouraged to undergo further evaluation/assessment as the next step in potentially having his driving privileges reinstated but he has to find a facility that can administer such test Patient had his fasting lipid profile done at [facility] lab at the end of October 2024 and his numbers then were at goal, with a total cholesterol level of 113 mg/dL and LDL cholesterol of 56 mg/dL States that he would now also like to get a referral to see surgery about possibly getting his right inguinal hernia repaired [facility] Medical History (Updated 01/12/25 @ 00:20 by Tico Reynolds MD) Short-term memory loss Hx of renal calculi Cerebrovascular accident (CVA) Vitamin D deficiency Left atrial dilatation Mitral valve prolapse Tubular adenoma of colon Allergic rhinitis Overweight (BMI 25.0-29.9) Surgical History (Updated 01/06/25 @ 13:20 by Tico Reynolds MD) Hx of mitral valve repair (~02/22/22) History of colonoscopy History of esophagogastroduodenoscopy (EGD) History of inguinal hernia repair History of tonsillectomy and adenoidectomy H/O right wrist surgery Family History Father Prostate cancer Mother Alzheimers disease Sister Multiple sclerosis Non-Hodgkin lymphoma Social History Housing: House Alcohol intake: current Alcohol intake frequency: former alcohol drinker Patient Tobacco Use Status: Former Tobacco user e-Cigarette/Vaping Use: Never Used Second Hand Smoke Exposure: Yes service: No Current occupational status: employed Cognitive needs: No Hearing needs: No Vision needs: No Questionnaire PHQ-9 Over the last 2 weeks, how often have you been bothered by any of the following problems? 1. Little interest or pleasure in doing things: not at all 2. Feeling down, depressed, or hopeless: not at all 3. Trouble falling or staying asleep, or sleeping too much: not at all 4. Feeling tired or having little energy: not at all 5. Poor appetite or overeating: not at all 6. Feeling bad about yourself - or that you are a failure or have let yourself or your family down: not at all 7. Trouble concentrating on things, such as reading the newspaper or watching television: not at all 8. Moving or speaking so slowly that other people could have noticed. Or the opposite - being so fidgety or restless that you have been moving around a lot more than usual: not at all 9. Thoughts that you would be better off or of hurting yourself in some way: not at all Total score: 0 Depression Screening Interpretation: Negative Depression Screening Done: Yes 57823 - PHQ-9 Billing: Yes Source: Developed by Drs. Kody Rouse, Renée Hatch, Misha Bravo and colleagues, with an educational malik from [employer]. Thrive Questionnaire Date Thrive assessed: 01/06/25 I am a: Patient What is your living situation today?: I have a steady place to live Within the past 12 months, did the food you bought not last and you didn't have the money to get more?: I choose not to answer this question Within the past 12 months, did you worry whether your food would run out before you got money to buy more?: I choose not to answer this question Do you have trouble paying for medicines?: No Do you have trouble getting transportation to medical appointments?: No Do you have trouble paying your heating and electricity bill?: No Do you have trouble taking care of your child, family member or friend?: I choose not to answer this question Do you have trouble with day-to-day activities such as bathing, preparing meals, shopping, managing finances, etc.?: I choose not to answer this question Are you currently unemployed and looking for a job?: I choose not to answer this question Are you interested in more education?: No Please select the resources that you would like help with: None Currently or been in a relationship where the following occur: I choose not to answer THRIVE Score: 0 AUDIT C Alcohol Use Questionnaire (AUDIT-C) 1. How often do you have a drink containing alcohol?: Never 3. How often do you have six or more drinks on one occasion?: Never Total Score: 0 Score Reviewed/Action Taken: Yes ZAKIYA-7 AMB Questionnaire ZAKIYA-7 Date ZAKIYA - 7 assessed: 01/06/25 Feeling nervous, anxious, or on edge: 0 = Not at all Not being able to stop or control worryin = Not at all Worrying too much about different things: 0 = Not at all Trouble relaxin = Not at all Being so restless that it is hard to sit still: 0 = Not at all Becoming easily annoyed or irritable: 0 = Not at all Feeling afraid as if something awful might happen: 0 = Not at all Total ZAKIYA-7 score (0-4 normal; 5-9 mild; 10-14 moderate; 15-21 severe): 0 Source: Developed by Drs. Kody Rouse, Renée Hatch, Misha Bravo and colleagues, with an educational malik from [employer]. Review of Systems Const Denies chills, Denies difficulty sleeping, Reports fatigue (mild; states that he still gets tired easily), Denies fever(s) and Denies headache(s) Eyes Reports blurry vision (in the right eye), Denies diplopia, Denies eye pain and Reports photophobia (most due to fluorescent lighting) ENT Denies dysphagia, Reports vertigo (occasionally), Denies otalgia, Denies headache(s), Denies neck pain, Denies odynophagia, Reports tinnitus (on and off) and Denies sore throat Card Denies chest pain, Denies palpitations and Reports dyspnea on exertion (mild) Resp Denies cough, Reports dyspnea on exertion (mild) and Denies wheezing GI Denies abdominal pain, Denies constipation, Denies dysphagia, Denies diarrhea, Denies nausea, Denies odynophagia and Denies vomiting Details: (+) right inguinal hernia - reports (+) mild martinez over his hernia at times Denies difficulty urinating, Denies dysuria, Denies nocturia and Denies urinary frequency Musc Denies abnormal gait, Denies back pain and Denies neck pain Skin/Breast Denies rash Neuro Denies Abnormal speech present (still has issues with expressive aphasia at times), Denies abnormal gait, Reports confusion (at times), Reports vertigo (occasionally), Denies headache(s) and Reports memory loss (mostly short-term memory loss ) Psych Reports confusion (at times) and Reports memory loss (mostly short-term memory loss ) Endo Reports fatigue (mild; states that he still gets tired easily) and Denies palpitations Aller/Immun Denies wheezing Physical exam (Primary Care) Vital Signs: Last Vital Signs Pulse 60 01/06/25 12:45 BP 90/68 01/06/25 12:45 Pulse Ox 96 01/06/25 12:45 Oxygen Delivery Method Room Air 01/06/25 12:45 BMI result Body Mass Index 25.4 Tobacco/Smoking Status: Tobacco use Status Tobacco use date assessed 01/06/25 01/06/25 12:50 Patient Tobacco Use Status Former Tobacco user 01/06/25 12:50 e-Cigarette/Vaping Use Never Used 01/06/25 12:50 PHQ-9: PHQ-9 Score PHQ-9: Total score 0 01/06/25 13:15 Depression Screening Interpretation: Negative Thrive Assessment: Date of Thrive Assessment Date Thrive assessed 01/06/25 01/06/25 12:50 Currently or been in a relationship where the following occur: I choose not to answer Const General: confusion (at times) Orientation/consciousness: confusion (at times) HENMT Head: Yes normocephalic Ears: TM's normal bilaterally and EAC's normal Throat: Yes posterior oropharynx normal and Yes tonsils normal (no TP congestion) Eyes Direct Ophthalmoscopy: photophobia (most due to fluorescent lighting) Neck Neck: Yes supple and No lymphadenopathy Thyroid: Thyroid normal Resp Auscultation: clear to auscultation bilaterally, no rales and no wheezes Cardio Rate: regular rate Rhythm: regular rhythm Heart sounds: no murmurs GI Palpation (GI): Soft to palpation, nontender and Hernia present direct inguinal on the right Auscultation: normal bowel sounds General: Yes no CVA tenderness Back/Spine/Pelvis Back: no CVA tenderness Skin Rashes: no rashes Neuro General: confusion (at times) Cognition (Neuro): normal cognition Speech: No Abnormal speech present (still has issues with expressive aphasia at times) Gait exam (Neuro): Normal gait present Extrem General: Yes no clubbing, cyanosis or edema Coding Level of Care Code Est Pt Level 4 (30794) Diagnoses Cerebrovascular accident (CVA) due to embolism of left posterior cerebral artery I63.432 CVA mechanism: embolism Precerebral and cerebral artery: posterior cerebral artery Laterality of affected vessel: left 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 Left atrial dilatation I51.7 Persistent atrial fibrillation I48.19 Vitamin D deficiency E55.9 Seasonal allergic rhinitis due to pollen J30.1 Allergic rhinitis trigger: pollen Allergic rhinitis seasonality: seasonal Right inguinal hernia K40.90 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 Additional Codes PHQ-9 - 59744 - PHQ-9 Billing: Yes ([id number]) Assessment & Plan Assessment & Plan (1) Cerebrovascular accident (CVA): Comment: S/P tPA (Tenecteplase) on 07/22/2022 at 12:18 pm--residual vision loss from it, short term memory loss, and positional vertigo Code(s): I63.9 - Cerebral infarction, unspecified Category: Medical Qualifiers: CVA mechanism: embolism Precerebral and cerebral artery: posterior cerebral artery Laterality of affected vessel: left Qualified Code(s): I63.432 - Cerebral infarction due to embolism of left posterior cerebral artery Plan: S/P tPA in 06/2022 Brain MRI at the time revealed findings of 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, involving primarily the left hippocampus and left occipital lobe Patient has had some visual impairment in his right eye and some degree of expressive aphasia as well as issues with short-term memory recall (memory loss) but has no other significant physical symptoms or sequelae from his CVA His friends and family feel that his memory recall has gotten worse over the past couple of years Continue Aspirin 325 mg QD and Eliquis 5 mg BID and Pantoprazole 40 mg QD for GI prophylaxis Continue Atorvastatin 20 mg QD for additional risk reduction Will send him for some follow-up labs BRUNO, including his fasting lipid profile Follow-up with Neurology and Ophthalmology as scheduled - he has been reminded that he is NOT allowed to drive until he is cleared by ophthalmology and neurology He recently participated in a study on hazard detection in the driving simulator at [facility] in [place] and he reportedly passed his test with about 90% detection rate of motorcycles on the right side, which is the side affected by his visual field loss States that because of this, he was encouraged to undergo further evaluation/assessment as the next step in potentially having his driving privileges reinstated but he has to find a facility that can administer such tests Patient states that he will call us back for a referral to a facility that can administer this test once he finds one (2) Myxomatous mitral valve: Comment: S/P mitral valve repair, left atrial appendage amputation, biatrial Maze and closure of PFO (Dr. Hernandez) at [facility] in [place] on 02/22/2022 Code(s): I34.1 - Nonrheumatic mitral (valve) prolapse Category: Medical Plan: Echocardiogram in January 2021 first revealed a myxomatous mitral valve with posterior mitral valve leaflet prolapse and with moderate mitral valve regurgitation; there was also a mildly dilated ascending aorta and mild aortic regurgitation but LV systolic and diastolic function were normal and RV systolic pressure was also normal with no pericardial effusion noted Patient underwent mitral valve repair with Maze and PFO closure on 02/22/22 He was on Coumadin and Maze x 1 month post-op; was then transitioned over to Eliquis 5 mg BID and Aspirin 325 mg QD Continue Metoprolol ER 12.5 mg (1/2 tablet of 25 mg) QD The original plan was to keep him on Aspirin 325 mg x 3 months, then decrease it to 81 mg QD lifetime but he is now instructed to stay on 325 mg QD (until advised otherwise by neurology) due to his CVA in June 2022 He is again reminded that he will need prophylactic Abx for any dental or invasive procedure for the rest of his life - Amoxicillin Rx refilled today He completed cardiac rehab at [facility] earlier this year Follow up with cardiology as scheduled (3) Left atrial dilatation: Code(s): I51.7 - Cardiomegaly Category: Medical Plan: (+) LA dilatation arising from his mitral valve disorder/degeneration. There is also a mildly dilated ascending aorta seen on echocardiogram but LV systolic and diastolic function are preserved /normal and RV systolic pressure is also normal Will continue to follow this up with cardiac echo routinely - he reportedly had a follow up echocardiogram done in [place] a few months ago that showed no significant changes from last year's echo findings (4) Persistent atrial fibrillation: Comment: S/P Maze procedure Code(s): I48.19 - Other persistent atrial fibrillation Category: Medical Plan: Corrected with Maze procedure He currently remains in sinus rhythm and is rate-controlled on Metoprolol ER 12.5 mg QD Continue Aspirin 325 mg QD; is also on Eliquis 5 mg BID since his CVA in June 2022 (5) Vitamin D deficiency: Code(s): E55.9 - Vitamin D deficiency, unspecified Category: Medical Plan: Continue Vitamin D3 2000 units QD (6) Allergic rhinitis: Code(s): J30.9 - Allergic rhinitis, unspecified Category: Medical Qualifiers: Allergic rhinitis trigger: pollen Allergic rhinitis seasonality: seasonal Qualified Code(s): J30.1 - Allergic rhinitis due to pollen Plan: Continue Loratadine 10 mg QD PRN (7) Right inguinal hernia: Code(s): K40.90 - Unilateral inguinal hernia, without obstruction or gangrene, not specified as recurrent Category: Medical Plan: Will refer him to surgery for further evaluation and consideration for hernia repair (8) 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): Code(s): I69.398 - Other sequelae of cerebral infarction; F06.30 - Mood disorder due to known physiological condition, unspecified Category: Medical Plan: Patient has been advised that he should consider taking something to help with his mood and this may also help him recover from his incapacities faster He continues to decline Rx for depression - states that he will call if he decides to start taking Rx but in the meantime, would like to continue trying to cope by staying active and staying busy Plan Follow up in 6 months Orders: Orders Vitamin B12 and Folate 01/06/25 E53.8 - Deficiency of other specified B group vitamins, I63.432 - Cerebral infarction due to embolism of left posterior cerebral artery Lyme IgG/IgM w/reflex to WB 01/06/25 W57.XXXA - Bitten or stung by nonvenomous insect and other nonvenomous arthropods, initial encounter Complete Blood Count Auto Diff 01/06/25 D64.9 - Anemia, unspecified, I63.432 - Cerebral infarction due to embolism of left posterior cerebral artery Comprehensive Met. Panel 01/06/25 I63.432 - Cerebral infarction due to embolism of left posterior cerebral artery TSH reflex Free T4 01/06/25 E78.00 - Pure hypercholesterolemia, unspecified, I63.432 - Cerebral infarction due to embolism of left posterior cerebral artery Vitamin D 25-OH Total 01/06/25 E55.9 - Vitamin D deficiency, unspecified, I63.432 - Cerebral infarction due to embolism of left posterior cerebral artery Referrals General Surgery Referral K40.90 - Unilateral inguinal hernia, without obstruction or gangrene, not specified as recurrent
--- OUTSIDE RECORDS SUMMARY | 2025-01-06 13:23 | XMS_ITS | Encounter Summary ---
Author Organization [facility] Address [address] [place] [id number] Phone Care Team Providers Care High Energy Forming Equipment Operator Name Role Phone Tico Reynolds MD Primary Care Provider [phone] Bartolo Craig MD Unavailable [phone] Ingrid Overton RN Unavailable [phone] Encounter Details Date Type Department Care Team (Late st Contact Info) Description 02/22/2022 Procedure Pass [facility] [address] [place] [id number] Social History Tobacco Use Types Packs/Day Years Used Date Smoking Tobacco: Former Smokeless Tobacco: Never Comments:quit 1995 Alcohol Use Standard Drinks/Week Comments Yes 4 (1 standard drink = 0.6 oz pur e alcohol) Sex and Gender Information Value Date Recorded Sex Assigned at Male 05/25/2021 12:51 PM EST Legal Sex Male 12:48 PM EST Gender Identity Male 05/25/2021 12:51 PM EST Sexual Orientation Straight 05/25/2021 12 :51 PM EST documented as of this encounter Functional Status * Calculated C-SSRS Risk Score (Lifetime/Recent) Answer Date of Assessment Author No Risk Indicated 02/23/2022 3:00 PM Justina Purvis RN * [place] Suicide Severity Rating Scale (Screener/Recent Self-Report) Question Answer Date of Assessment Author 1. Wish to be (Past 1 Month) No 02/23/2022 3:00 PM Justina Purvis RN 2. Non-Specific Active Suicidal Thoughts (Past 1 Month) No 02/23/2022 3:00 PM EDT Justina Moreno RN 6. Suicidal Behavior (Lifetime) No 02/23/2022 3:00 PM EDT Justina Moreno RN documented as of this encounter Plan of Treatment Not on file documented as of this encounter Visit Diagnoses Not on filedocumented in this encounter Care Teams High Energy Forming Equipment Operator Relationship Specialty Start Date End Date Tico Reynolds MD [address] [place] [address] Dr Luna [address] [place] [id number] PCP - General Internal Medicine 05/25/21 Bartolo Craig MD [address] [facility] [id number] [place] [address] [email or web address] Specialist Cardiology 10/25/21 Ingrid Overton RN 55 [facility] [id number] [place] [address] [email or web address] Registered Nurse 03/01/22 documented as of this encounter Additional Source Comments The information contained in this document represents components of the legal health record. It is not the complete legal health record.[facility]
== END 2025-01-06 13:35 | disposition home or self-care (01) ==
LOC: HO.HMCH 12:42
PROVIDERS: PCP Internal Medicine; Visit Provider Internal Medicine
DX: I63.432 Cerebral infarction due to embolism of left posterior cerebral artery (principal); I34.1 Nonrheumatic mitral (valve) prolapse; I51.7 Cardiomegaly; I48.19 Other persistent atrial fibrillation; E55.9 Vitamin D deficiency, unspecified; J30.1 Allergic rhinitis due to pollen; K40.90 Unilateral inguinal hernia, without obstruction or gangrene, not specified as recurrent; I69.398 Other sequelae of cerebral infarction; F06.30 Mood disorder due to known physiological condition, unspecified

== ENCOUNTER → 2025-01-06 12:42 | Outpatient (BNVA) | payer BC, SELFPAY | PROVIDERS: PCP Internal Medicine; Visit Provider Internal Medicine | DX: I34.1 Nonrheumatic mitral (valve) prolapse (principal); I51.7 Cardiomegaly; I48.19 Other persistent atrial fibrillation; E55.9 Vitamin D deficiency, unspecified; J30.1 Allergic rhinitis due to pollen; K40.90 Unilateral inguinal hernia, without obstruction or gangrene, not specified as recurrent; I69.398 Other sequelae of cerebral infarction; F06.30 Mood disorder due to known physiological condition, unspecified | CPT/HCPCS: 96127 ==

== ENCOUNTER 2025-01-16 12:32 | Outpatient (REF) | payer BC, SELFPAY ==
[2025-01-16 12:55] LABS: MANUAL DIFF FLAG NO
[2025-01-16 13:20] LABS: Hematocrit 42.5 % (42.0-52.0); Hemoglobin 14.0 g/dl (14.0-18.0); Imm Gran Abs Auto 0.01 X10*3/uL (0.00-0.03); Imm Gran Pct Auto 0.2 % (0.0-0.4); Lymphocytes Absolute Auto 1.3 X10*3/uL (1.2-4.9); Mean Corpuscular HGB Conc 32.9 g/dl (31.0-36.0); Mean Corpuscular Hemoglobin 30.3 pg (27.0-33.0); Mean Corpuscular Volume 92.0 fL (80.0-98.0); NRBC Abs Auto 0.000 X10*3/uL (0.0-0.012); NRBC Pct Auto 0.0 /100WBC (0.0-0.2); Platelet Count 200 X10*3/uL (160-400); Red Blood Count 4.62 X10*6/uL (4.60-5.80); White Blood Count 4.6 X10*3/uL (4.8-10.8)
[2025-01-16 13:56] LABS: Alanine Aminotransferase 28 U/L (0-40); Albumin Level 4.2 g/dL (3.5-5.0); Alkaline Phosphatase 66 U/L (39-117); Anion Gap 11 (12-20); Aspartate Amino Transferase 24 U/L (5-37); Blood Urea Nitrogen 16 mg/dL (9-16); Calcium 9.0 mg/dL (8.4-10.2); Carbon Dioxide 28 mmol/L (22-29); Chloride 108 mmol/L (96-108); Estimated Glomerular Filt Rate > 60; Potassium 4.1 mmol/L (3.3-5.1); Sodium 143 mmol/L (135-145); Total Protein 7.0 g/dL (6.5-8.0)
[2025-01-16 14:24] LABS: Folate 10.5 ng/mL (> or = 4.0); Vitamin B12 274 pg/mL (200-900)
[2025-01-20 01:39] LABS: Lyme Abs Screen <0.90 index
== END 2025-01-16 12:33 | disposition home or self-care (01) ==
LOC: HO.LAB 12:32
PROVIDERS: PCP Internal Medicine; Visit Provider Internal Medicine
DX: Z01.84 Encounter for antibody response examination (principal); I63.432 Cerebral infarction due to embolism of left posterior cerebral artery; E53.8 Deficiency of other specified B group vitamins; E55.9 Vitamin D deficiency, unspecified; E78.00 Pure hypercholesterolemia, unspecified; D64.9 Anemia, unspecified; W57.XXXA Bitten or stung by nonvenomous insect and other nonvenomous arthropods, initial encounter
CPT/HCPCS: 36415; 80053; 82306; 82607; 82746; 84443; 85025; 86617; 86618

== ENCOUNTER 2025-03-26 13:02 | Outpatient (AMB) | payer BC, SELFPAY ==
--- NOTE | 2025-03-26 13:11 | A.OFFVIS_ITS ---
Vital Signs 03/26/25 13:20 Height 5 ft 10 in Weight 179 lb BMI 25.7 BP 116/62 Blood Pressure Location Lt brachial Position Sitting Pulse 62 Intake Visit Reasons: ingunial hernia Intake Note: Patient is seen in office for evaluation of an inguinal hernia. Pt c/o: onset 5 yrs ago, had this repaired [place] [address] Rivas, is uncomfortable, does not feel a lump, denies n/v/d/c, Allergies poison adolfo extract Allergy (Severe, Verified 01/16/25 12:49) Blister cat dander (CATS) Allergy (Mild, Verified 01/16/25 12:49) SNEEZING/ITCHY EYES Environmental Allergy (Mild, Uncoded 01/06/25 13:12) SNEEZING/ITCHY EYES Medication List - Last Reconciled 03/26/25 by Richard Vasquez MD apixaban (Eliquis) 5 mg PO BID 10 days Held on 06/16/24. Instructions: Resume on 06/17/24. aspirin 325 mg PO DAILY atorvastatin 20 mg PO BEDTIME 90 days cholecalciferol (vitamin D3) 50 mcg PO DAILY metoprolol succinate ER 12.5 mg (1/2 x 25 mg) PO DAILY 90 days HPI HPI ingunial hernia: Details: 69-year-old male referred for question of a left inguinal hernia. He says that he underwent repair of a left inguinal hernia with Dr. Rivas many years ago He has describes having some discomfort and occasional pain on the left groin whenever he gets active. He said he had open heart surgery for valve repair 3 years ago and has not been active until recently. He denies feeling any reducible mass in the area He has no GI complaints. He says he had a stroke about 2 years ago and has some visual impairment on the right field of vision. [facility] Medical History Short-term memory loss Hx of renal calculi Cerebrovascular accident (CVA) Vitamin D deficiency Left atrial dilatation Mitral valve prolapse Tubular adenoma of colon Allergic rhinitis Overweight (BMI 25.0-29.9) Surgical History Hx of mitral valve repair (~02/22/22) History of colonoscopy History of esophagogastroduodenoscopy (EGD) History of inguinal hernia repair History of tonsillectomy and adenoidectomy H/O right wrist surgery Family History Father Prostate cancer Mother Alzheimers disease Sister Multiple sclerosis Non-Hodgkin lymphoma Social History Housing: House Alcohol intake: current Alcohol intake frequency: former alcohol drinker Patient Tobacco Use Status: Former Tobacco user e-Cigarette/Vaping Use: Never Used Second Hand Smoke Exposure: Yes service: No Current occupational status: employed Cognitive needs: No Hearing needs: No Vision needs: No Review of Systems Const Denies chills and Denies fever(s) Eyes Reports change in vision Card Denies chest pain, Denies dyspnea and Denies dyspnea on exertion Resp Denies cough, Denies dyspnea and Denies dyspnea on exertion GI Denies hematochezia and Denies change in bowel habits Denies hematuria and Denies difficulty urinating Musc Denies back pain and Denies limited range of motion Neuro Denies focal weakness and Denies convulsions Psych Denies depression and Denies mood swings Physical Exam Vital Signs: Last Vital Signs Pulse 62 03/26/25 13:20 BP 116/62 03/26/25 13:20 BMI result Body Mass Index 25.7 Const General: comfortable and no acute distress Orientation/consciousness: patient oriented x3 Neck Neck: Yes no lymphadenopathy Resp Auscultation: clear to auscultation bilaterally Cardio Rhythm: regular rhythm GI Other: I am unable to feel a reducible mass in the left groin with Valsalva Palpation (GI): Soft to palpation, nontender and no guarding Neuro General: patient oriented x3 Assessment & Plan Assessment & Plan (1) Left inguinal hernia: Code(s): K40.90 - Unilateral inguinal hernia, without obstruction or gangrene, not specified as recurrent Category: Medical Plan: He says that he was told in [facility] that he had a hernia on the left side seen on his imaging studies. Current exam does not reveal an obvious hernia. I am going to retrieve his imaging studies from [facility]. I will then discuss with him the Nexplanon in his carried depending on what these show. I will therefore call him after I retrieved his records/imaging studies. He understands the plan and is comfortable with this. Coding Level of Care Code New Pt Level 3 (22513) Diagnoses Left inguinal hernia K40.90
[2025-03-26 13:20] VITALS: BP 116/62; PULSE 62; BMI 25.7
--- OUTSIDE RECORDS SUMMARY | 2025-03-26 15:53 | XMS_ITS | Encounter Summary ---
Author Organization [facility] Address [address] [place] [address] Phone Care Team Providers Care Share Holder Name Role Phone Tico Reynolds MD Primary Care Provider [phone] Bartolo Craig MD Unavailable [phone] Ingrid Overton RN Unavailable [phone] Encounter Details Date Type Department Care Team (Late st Contact Info) Description 02/22/2022 Procedure Pass [facility] Card[facility] [address] [place] [address] Social History Tobacco Use Types Packs/Day Years [...] 02/23/2022 3:00 PM Justina Purvis RN * [place] Suicide Severity Rating Scale (Screener/Recent Self-Report) Question Answer Date of Assessment Author 1. Wish to be (Past 1 Month) No 02/23/2022 3:00 PM Justina Purvis RN 2. Non-Specific Active Suicidal Thoughts (Past 1 Month) No 02/23/2022 3:00 PM EDT Justina Moreno RN 6. Suicidal Behavior (Lifetime) No 02/23/2022 3:00 PM EDT Justina Moreno RN documented as of this encounter Plan of Treatment Upcoming Encounters Date Type Department Care Team (Late st Contact Info) Description 05/11/2025 12:30 PM EST Telemedicine [facility] [address] [facility], 5th Floor, [address] [place] [address] Bartolo Craig MD [address] [facility] [address] [place] [address] [email or web address] 06/10/2025 1:45 PM EST Office Visit [facility] [address] [place] [address] Tico Reynolds MD [address] [place] [address] Dr Luna [address] [place] [address] Zaira Arredondo, OT [address] [place] [address] [email or web address] documented as of this encounter Visit Diagnoses Not on filedocumented in this encounter Care Teams Share Holder Relationship Specialty Start Date End Date Tico Reynolds MD [address] [place] [address] [place] [address] PCP - General Internal Medicine 05/25/21 Bartolo Craig MD 55 [facility] [address] [place] [address] [email or web address] Electrical Engineering Draftsperson Cardiology 10/25/21 Ingrid Overton RN [address] [facility] [address] [place] [address] Registered Nurse 03/01/22 documented as of this encounter Additional Source Comments The information contained in this document represents components of the legal health record. It is not the complete legal health record.[facility]
--- OUTSIDE RECORDS SUMMARY | 2025-03-26 15:53 | XMS_ITS | Encounter Summary ---
Author Organization [facility] Address [address] [place] [address] Phone Care Team Providers Care Cleaning Maid Name Role Phone Tico Reynolds MD Primary Care Provider [phone] Bartolo Craig MD Unavailable [phone] Ingrid Overton RN Unavailable [phone] Encounter Details Date Type Department Care Team (Late st Contact Info) Description 02/22/2022 Procedure Pass [facility] PERIOPER[facility]IVE DEPT [address] [place] [id number] Social History Tobacco Use Types Packs/Day Years [...] 02/23/2022 3:00 PM Justina Purvis RN * [place] Suicide Severity Rating Scale (Screener/Recent Self-Report) Question [...] Info) Description 05/11/2025 12:30 PM EST Telemedicine [facility] [address] [facility], 5th Floor, [address] [place] [address] Bartolo Craig MD [facility] [address] [place] [address] [email or web address] 06/10/2025 1:45 PM EST Office Visit [facility] [address] [place] [address] Tico Reynolds MD [address] [place] [address] Dr Luna [address] [place] [address] Zaira Arredondo, OT [address] [place] [address] [email or web address] documented as of this encounter Visit Diagnoses Not on filedocumented in this encounter Care Teams Cleaning Maid Relationship Specialty Start Date End Date Tico Reynolds MD [address] [place] [address] [place] [address] PCP - General Internal Medicine 05/25/21 Bartolo Craig MD [address] [facility] [address] [place] [address] [email or web address] Motor Coach Tour Operator Cardiology 10/25/21 Ingrid Overton RN 55 [facility] [address] [place] [address] Registered Nurse 03/01/22 documented as of this encounter Additional Source Comments The information contained in this document represents components of the legal health record. It is not the complete legal health record.[facility]
--- OUTSIDE RECORDS SUMMARY | 2025-03-26 15:53 | XMS_ITS | Clinical Summary ---
Author Organization [facility] Address [address] [place] [address] Phone Care Team Providers Care Brick Sorter Name Role Phone Tico Reynolds MD Primary Care Provider [phone] Bartolo Craig MD Unavailable [phone] Ingrid Overton RN Unavailable [phone] Allergies Active Allergy Reactions Criticality Noted Date Comments Cat Dander Sneezing Medium 10/19/2023 Vit E-Nonoxynol 9-Aloe Vera Hives,Rash High 10/19/19 24 Medications metoprolol succinate (TOPROL-XL) 25 MG 24 hr tablet Take 0.5 tablets (12.5 mg total) by mouth nightly at bedtime. 30 tablet 2 2 Active Additional Information Patient taking differently:12.5 mg OralDaily, Reported on 03/31/2024 aspirin 325 MG tablet Take 1 tablet (325 mg total) by mouth daily. 2 Active atorvastatin (LIPITOR) 20 MG tablet Take 20 mg by mouth daily. Active cholecalcifero l (VITAMIN D3) 2,000 unit tablet Take 2,000 Units by mouth daily. 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 Most recent TTE showed impaired LV systolic function with LVEF 50%, LA dilated, mild AI. Severe MR with posterior MV leaflet flail. Mild-mod TR with RVSP 37 mmHg. On 02/22, he underwent MV repair (40mm ring) with MAZE, LAAA, and PFO closure. HGb ~9. Weaned off pressors. Mild pulmonary edema c/w acute diastolic HF in setting of perioperative volume, diuresing with PO Lasix, TBB neg ~400 cc, weight down 1 lb to 178 lb (7 lb above preop, though he notes he had gained 3 lb with holding lasix while surgery rescheduled, so actual dry wt may be 168 lbs). Stable renal function. Rhythm as below. - continue ASA, diuresis as tolerated - AC per primary team - advised pt to check BP daily at home, report to Dr. Craig if SBP<90 with increased dizziness, or if SBP consistently >140 (may need BB/diuretic d/c'd or adjusted if so); 2 gm Na+ diet - longitudinal cardiology f/u with Dr Craig (arranged appts: virtual visit 03/17 10:25am, in person visit 03/31 11:30 am which is day of his cardiac surgical follow up at 2pm) - Has TTE scheduled for 04/29/22, defer to Dr. Hernandez regarding optimal timing for next echo PAF (paroxysmal atrial fibrillation) 02/22/2022 Assessment & Plan (02/28/2022 11:24 AM EDT): He c/o recent palpitations and was found to be in afib with RVR. He was started on apixaban 5mg BID and Toprol 25mg daily. He was in rate controlled afib on preop EKG. His apixaban was stopped 02/14 and he was bridged with lovenox 02/16-02/19. CHADS-VASc = 0 (0.2% risk of stroke per year) On 02/22, he underwent MAZE and LAAA with his MV repair and PFO closure. On 02/22, tele showed initial SB 40's, episode of afib with RVR, then SR/MANAGER CARDIOLOGY 80's, then A pacing with 3-5 seconds only P waves underlying on 02/23 AM. Now in SB, few mins PAf/RVR 02/24 am, per RN note had burst PAf 02/27 am, not seen on tele review or strips on chart. QTc normalized, no SASCHA. Wires out 02/27. - continue BB - continue warfarin loading goal INR 2-3 (INR 1.2 today; per surgery warfarin rather than apixaban in case bleeding issue and reversal needed- Dr. Craig amenable to being contact acid plant operator helper for [facility]) Encounters Date Type Department Care Team Description 03/08/2025 Refill [facility] [address] [facility], [address] [place] [address] Bartolo Craig MD Medication Refill 12/24/2024 2:30 PM EDT Office Visit [facility] [address] [facility] 9th [place] [address] Serg Go MD Homonymous hemianopia, right (Primary Dx) from Last 3 Months Immunizations Immunization Administration Dates Next Due Influenza Quadrivalent Prese rvative Free IM 02/28/2022(Deferred: Patient Refused - pt refused) Social History Tobacco Use Types Packs/Day Years Used Date Smoking Tobacco: Former Cigarettes S tarted: 1995 Smokeless Tobacco: Former Tobacco Cessation:Counseling Given: Not Answered Comments:quit 1995 Alcohol Use Standard Drinks/Week Comments Yes 4 (1 standard drink = 0.6 oz pur e alcohol) Education Answer Date Recorded Are you interested in more education? Not on donnell e 09/23/2022 Are you concerned about learning? Not on file 09/23/2022 No 09/23/2022 No 09/23/2022 Digital Access Answer Date Recorded No 10/17/2022 No 10/17/2022 Reliable internet access at home? Not on file 10/17/2022 Device with a working camera? Not on file Sex and Gender Information Value Date Recorded Sex Assigned at Male 05/25/2021 12:51 PM EST Legal Sex Male 12:48 PM EST Gender Identity Male 05/25/2021 12:51 PM EST Sexual Orientation Straight 05/25/2021 12 :51 PM EST Last Filed Vital Signs Vital Sign Reading Time Taken Comments Blood Pressure 99/61 10/19/2023 10:27 AM EDT Pulse 64 10/19/2023 10:27 AM EDT Temperature 35.8 C (96.4 F) 01/05/2023 2:41 PM EDT Respiratory Rate 18 06/27/2022 10:40 AM EST Oxygen Saturation 97% 10/19/2023 10:27 AM EDT Inhaled Oxygen Concentration 40% 02/23/2022 1 :30 AM EDT Weight 79.4 kg (175 lb) 05/12/2024 1:20 PM EST Height 177.8 cm (5' 10 ) 05/12/2024 1:20 PM EST Body Mass Index 25.11 05/12/2024 1:20 PM EST Plan of Treatment Upcoming Encounters Date Type Department Care Team (Late st Contact Info) Description 05/11/2025 12:30 PM EST Telemedicine [facility] [address] [facility], 5th Floor, [address] [place] [address] Bartolo Craig MD [facility] [address] [place] [address] [email or web address] 06/10/2025 1:45 PM EST Office Visit [facility] [address] [place] [address] Tico Reynolds MD [address] [place] [address] [place] [address] Zaira Arredondo OT [address] [place] [address] [email or web address] Health Maintenance Due Date Last Done Comments SMOKING Hx and SMOKELESS TOBACCO SCREENING 1970 HEPATITIS C SCREENING 10/26/1975 COLOGUARD 2002 COLONOSCOPY 2002 COLORECTAL CANCER SCREENING 2002 FIT TEST 2002 FOBT 2002 SIGMOIDOSCOPY 2002 VIRTUAL COLONOSCOPY 2002 PNEUMOCOCCAL VACCINES (50+ years) (1 of 1 - PCV) 10/26/2007 ZOSTER VACCINES (1 of 2) 10/26/2007 ABDOMINAL AORTIC ANEURYSM (AAA) SCREENING 2022 Adult Td,Tdap Booster 01/08/2023 01/08/2013 DEPRESSION SCREENING 02/09/2024 02/08/2023, 01/06/20 23 CREATININE LEVEL 05/17/2024 05/17/2023, 08/2021, 02/27/2022, Additional history exists INFLUENZA VACCINE (#1) 2024 COVID-19 VACCINE ( - season) 2025 10/20/2020, 09/22/2020 LIPID PANEL 11/20/2025 11/20/2024, 10/24/2024 SCREENING FOR DIABETES 05/17/2026 05/17/2023 RSV VACCINE (1 - 1-dose 75+ series) 2032 HEPATITIS A VACCINES Aged Out No long er eligible based on patient's age to complete this topic HIB VACCINES Aged Out No longer eligi ble based on patient's age to complete this topic MENINGOCOCCAL VACCINES (ACWY) Aged Out No longer eligible based on patient's age to complete this topic MENINGOCOCCAL VACCINES (B) Aged Out N o longer eligible based on patient's age to complete this topic Medical Devices Implanted Type Area Capability Lead Device Identifier Shelf Expiration Date Model / Serial / Lot Ring Annuloplasty 45.3x40mm 38.7 Steven Padilla [employer] Eligoy Band Silicone Rubber Polyester Cover Mitral - [id number] Implanted:Qty: 1 on 02/22/2022 by Jeanette Hernandez MD at [facility] N/A: Heart [employer] 10/30/2026 [id number] / [id number] / Procedures Procedure Name Priority Date/Time Associated Diagnosis Comments [place] VISUAL FIELD - OU - BOTH EYES Routine 12/24/2024 1:47 PM EDT Homonymous hemianopia, right LIPID PANEL Routine 11/20/2024 11:46 AM EDT Cerebrovascular accident (CVA) due to occlusion of posterior cerebral artery, unspecified blood vessel laterality BASIC METABOLIC PANEL Routine 05/17/2023 8:06 AM EST 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 Strategy: SAMUEL - Fast. Reliability: Good. Mean Deviation: -3.13 dB dB. Change: Stable. Left Eye Pattern: 30-2. Strategy: SAMUEL - Fast. Reliability: Poor. Mean Deviation: -2.85 dB dB. Change: Stable. General Details Testing performed by: Stan Rawls Notes RE: 07/12 fixation losses, 6% false positives, no false negatives LE: 01/06 fixation losses, 5% false positives, no false negatives Predominately right superior quadrananopia us Serg Go MD OPHTHALMOLOGY IMAGING Final Result PAULA * (ABNORMAL) Lipid panel (11/20/2024 11:46 AM EDT) HDL 45 mg/dL [facility] Comment: Interpretation <40 mg/dL: Low HDL cholesterol (major risk factor for CHD) Greater than or equal to 60 mg/dL: High HDL cholesterol ( negative risk factor for CHD) HDL - cholesterol is affected by a number of factors, e.g. smoking, excerise, hormones, sex and age. CHOLESTEROL 113 0 - 240 mg/dL [facility] TRIGLYCERIDES 58 30 - 160 mg/dL [facility] LDL 56 50 - 129 mg/dL [facility] Comment: LDL levels in terms of risk for coronary heart disease: <100 mg/dL: Optimal 100-129 mg/dL: Near or above optimal 130-159 mg/dL: Borderline high 160-189 mg/dL: High >190 mg/dL: Very High CARDIAC RISK RATIO 2.5(L) 3.4 - 5.0 C [facility] Blood 11/20/2024 11:4 6 AM EDT 11/20/2024 11:55 AM EDT us Kristin Leon [employer] LAB BLOOD ORDERABLES Fin al Result [address] [address] * Basic metabolic panel (05/17/2023 8:06 AM EST) SODIUM 139 133 - 146 mmol/L [facility] CHLORIDE 104 96 - 108 mmol/L [facility] POTASSIUM 4.0 3.3 - 5.1 mmol/L [facility] CO2 27 21 - 35 mmol/L [facility] BUN 15 6 - 19 mg/dL [facility] CREATININE 0.90 0.5 - 1.5 mg/dL [facility] GLUCOSE 85 70 - 99 mg/dL [facility] CALCIUM 9.0 8.4 - 10.3 mg/dL [facility] EGFR 95 >59 mL/min/1.7 3m2 [facility] Comment:Estimated glomerular filtration rate calculated using the CKD-EPI refit equation. ANION GAP 12 10 - 20 mmol/L [facility] Blood 05/17/2023 8:06 AM EST 05/17/2023 8:08 AM EST us Bartolo Craig MD LAB BLOOD ORDERABLES Final Re sult [address] [address] from Last 3 Months or Most Recently Relevant to Health Maintenance Insurance ANGEL FERRERA [place] [facility] PPO EPO ANGEL [place]ERR[place] [facility] PPO EPO Rick FERRER[place] [facility] PPO EPO ANGEL [place] [facility] PPO EPO ANGEL [place] [facility] PPO EPO [place]GEL [place] [facility]PO [place] [facility] PPO EPO [place] [facility] PPO EPO [facility] PPO EPO Advance Directives For more information, please contact: [phone] (9AM - 5PM [facility], Sunday-Sunday) Documents on File Type Date Recorded Patient Outcomes Analyst Expl anation Healthcare Proxy 02/09/2022 1:19 PM * Full Code (Latest Code Status on File) Date Activated Date Inactivated Comments 02/22/2022 1:35 PM Question Answer Comments Code Status Confirmed With: Patient Code Status Communicated To: Inpatient Attending Care Teams Brick Sorter Relationship Specialty Start Date End Date Tico Reynolds MD [address] [place] [address] Dr [place], [place] PCP - General Internal Medicine 05/25/21 Bartolo Craig MD [address] [place] [address] [email or web address] Imaging Center Manager Cardiology 10/25/21 Ingrid Overton, ARSALAN [address] [place] [address] [email or web address] Registered Nurse 03/01/22 Additional Source Comments The information contained in this document represents components of the legal health record. It is not the complete legal health record.[facility]
--- OUTSIDE RECORDS SUMMARY | 2025-03-26 15:53 | XMS_ITS | Encounter Summary ---
Author Organization [facility] Address [address] [facility] [address] [place] [address] Phone Care Team Providers Care Broom Worker Name Role Phone Tico Reynolds MD Primary Care Provider [phone] Bartolo Craig MD Unavailable [phone] Ingrid Overton RN Unavailable [phone] Encounter Details Date Type Department Care Team (Late st Contact Info) Description 02/05/2023 Procedure Pass [facility] Cardiology [address] [facility], [address] [place] [id number] Social History Tobacco Use Types Packs/Day Years [...] PM EST documented as of this encounter Plan of Treatment Upcoming Encounters Date Type Department Care Team (Late st Contact Info) Description 05/11/2025 12:30 PM EST Telemedicine [facility] [address] [facility], 5th Floor, [address] [place] [address] Bartolo Craig MD [address] [facility] [address] [place] [address] [email or web address] 06/10/2025 1:45 PM EST Office Visit [facility] Rehabilitation Services [address] [place] [address] Tico Reynolds MD [address] [place] [address] Dr Luna [address] [place] [address] Zaira Arredondo, OT [address] [place] [address] [email or web address] documented as of this encounter Visit Diagnoses Not on filedocumented in this encounter Additional Health Concerns Assessment Noted Time PHQ-9 Depression Total Score: 5 02/09/20 23 9:32 AM EDT PHQ-2 Depression Total Score: 4 01/06/20 23 2:09 PM EDT documented as of this encounter Care Teams Broom Worker Relationship Specialty Start Date End Date Tico Reynolds MD [address] [place] [address] [place] [id number] PCP - General Internal Medicine 05/25/21 Bartolo Craig MD [address] [facility] [address] [place] [address] [email or web address] Patient Care Technician Cardiology 10/25/21 Ingrid Overton, ARSALAN [address] [facility] [address] [place] [address] [email or web address] Registered Nurse 03/01/22 documented as of this encounter Additional Source Comments The information contained in this document represents components of the legal health record. It is not the complete legal health record.[facility]
--- OUTSIDE RECORDS SUMMARY | 2025-03-26 15:53 | XMS_ITS | Encounter Summary ---
Author Organization [facility] Address [address] [place] [address] Phone Care Team Providers Care Barrel Endshake Adjuster Name Role Phone Tico Reynolds MD Primary Care Provider [phone] Bartolo Craig MD Unavailable [phone] Ingrid Overton RN Unavailable [phone] Encounter Details Date Type Department Care Team (Late st Contact Info) Description 02/22/2022 Procedure Pass [facility] [place] [place] 55 [place] [id number] Social History Tobacco Use Types Packs/Day Years [...] 02/23/2022 3:00 PM Justina Purvis RN * [place] Suicide Severity Rating Scale (Screener/Recent Self-Report) Question [...] Info) Description 05/11/2025 12:30 PM EST Telemedicine [facility] [place] [facility] [address] [facility], 5th Floor, [address] [place] [address] Bartolo Craig MD [facility] [address]GRB [address] [place] [address] [email or web address] 06/10/2025 1:45 PM EST Office Visit [facility] Rehabilitation Services [address] [place] [address] Tico Reynolds MD [address] [place] [address] Dr Luna [address] [place] [address] Zaira Arredondo, OT 159 [place] [address] [email or web address] documented as of this encounter Visit Diagnoses Not on filedocumented in this encounter Care Teams Barrel Endshake Adjuster Relationship Specialty Start Date End Date Tico Reynolds MD [address] [place] [address] [place] [address] PCP - General Internal Medicine 05/25/21 Bartolo Craig MD 55 [facility] GRB [address] [place] [address] [email or web address] Thermite Bomb Loader Cardiology 10/25/21 Ingrid Overton RN 55 [facility] GRB [address] [place] [address] Registered Nurse 03/01/22 documented as of this encounter Additional Source Comments The information contained in this document represents components of the legal health record. It is not the complete legal health record.[facility]
--- OUTSIDE RECORDS SUMMARY | 2025-03-26 15:54 | XMS_ITS | Encounter Summary ---
Author Organization [facility] Address [address] [facility] [address] [place] [address] Phone Care Team Providers Care Pantograph I Engraver Name Role Phone Tico Reynolds MD Primary Care Provider [phone] Bartolo Craig MD Unavailable [phone] Ingrid Overton RN Unavailable [phone] Encounter Details Date Type Department Care Team (Late st Contact Info) Description 12/30/2021 Procedure Pass MRI, [facility] [place] [address] [address] [facility], [address] [place] [id number] Social History Tobacco Use Types Packs/Day Years Used Date Smoking Tobacco: Unknown Alcohol Use Standard Drinks/Week Comments Not Currently 0 (1 standard drink = 0.6 oz pur [...] Info) Description 05/11/2025 12:30 PM EST Telemedicine [facility] [address] [facility], 5th Floor, [address] [place] [address] Bartolo Craig MD [address] [facility] GRB [address]B 800 [place] [address] [email or web address] 06/10/2025 1:45 PM EST Office Visit [facility] Rehabilitation Services 159 [place] [address] Tico Reynolds MD [address] [place] [address] Dr Luna [address] [place] [address] Zaira Arredondo, OT [address] [place] [address] [email or web address] documented as of this encounter Visit Diagnoses Not on filedocumented in this encounter Care Teams Pantograph I Engraver Relationship Specialty Start Date End Date Tico Reynolds MD [address] [place] [address] [place] [address] PCP - General Internal Medicine 05/25/21 Bartolo Craig MD 55 [facility] [address] [place] [address] [email or web address]@[email or web address] Senior Chemist Cardiology 10/25/21 Ingrid Overton RN 55 [facility] GRB [address] 800 [place] [address] [email or web address] Registered Nurse 03/01/22 documented as of this encounter Additional Source Comments The information contained in this document represents components of the legal health record. It is not the complete legal health record.[facility]
--- OUTSIDE RECORDS SUMMARY | 2025-03-26 15:54 | XMS_ITS | Encounter Summary ---
Author Organization [facility] Address [address] [place] [address] [address] [place] [address] Phone Care Team Providers Care Bulb Weeder Name Role Phone Tico Reynolds MD Primary Care Provider [phone] Bartolo Craig MD Unavailable [phone] Ingrid Overton RN Unavailable [phone] Encounter Details Date Type Department Care Team (Late Contact Info) Description 03/01/2022 Anti-coag visit [facility] [address] [facility] [address] [place] [address] Ingrid Overton, RN 125 [place] [address] [email or web address] Social History Tobacco Use Types Packs/Day Years [...] Encounters Date Type Department Care Team (Late Contact Info) Description 05/11/2025 12:30 PM EST Telemedicine [facility] [address] [facility], 5th Floor, [address] [place] [address] Bartolo Craig MD [facility] [address] [place] [address] [email or web address] 06/10/2025 1:45 PM EST Office Visit [facility] Rehabilitation Services 159 [place] [address] Tico Reynolds MD [address] [place] [address] Dr Luna [address] [place] [address] Zaira Arredondo, OT 159 [place] [address] [email or web address] documented as of this encounter Visit Diagnoses Not on filedocumented in this encounter Care Teams Bulb Weeder Relationship Specialty Start Date End Date Tico Reynolds MD [address] [place] [address] Dr Luna [address] [place] [address] PCP - General Internal Medicine 05/25/21 Bartolo Craig MD [facility] [address] [place] [address] [email or web address] Title Camera Operator Cardiology 10/25/21 Ingrid Overton RN 55 [facility] GRB [address]GR[address] [place] [address] [email or web address] Registered Nurse 03/01/22 documented as of this encounter Additional Source Comments The information contained in this document represents components of the legal health record. It is not the complete legal health record.[facility]
--- OUTSIDE RECORDS SUMMARY | 2025-03-26 15:54 | XMS_ITS | Encounter Summary ---
Author Organization [facility] Address [address] [facility] [address] [place] [address] Phone Care Team Providers Care Atmospheric Physics Professor Name Role Phone Tico Reynolds MD Primary Care Provider [phone] Bartolo Craig MD Unavailable [phone] Ingrid Overton RN Unavailable [phone] Encounter Details Date Type Department Care Team (Late st Contact Info) Description 01/04/2022 Ancillary Orders [facility] Department of Neurology [address] [place] [address], 7th Floor, [address] [place] [address] Tre Carter MD, [address] [place] [address] [email or web address] Foreign body in eye, unspecified laterality, initial encounter Social History Tobacco Use Types Packs/Day Years [...] Info) Description 05/11/2025 12:30 PM EST Telemedicine [facility] [address] [place] [address], 5th Floor, [address] [place] [address] Bartolo Craig MD [address] [facility] GRB [address]GRB [address] [place] [address] [email or web address] 06/10/2025 1:45 PM EST Office Visit [facility] Rehabilitation Services 159 [place] [address] Tico Reynolds MD [address] [place] [address] [place] [address] Zaira Arredondo, OT 159 [place] [address] [email or web address] documented as of this encounter Results * XR Orbit For Foreign Body (Bilateral) (01/06/2022 1:48 PM EDT) Anatomical Region Laterality Modality Face Radiographic Flower ging 01/06/2022 2:28 PM EDT Impressions 01/06/2022 2:28 PM EDT No radiopaque foreign body in the orbits. Narrative 01/06/2022 2:28 PM EDT XR ORBIT FOR FOREIGN BODY (BILATERAL) COMPARISON: None FINDINGS: No radiopaque foreign body in the orbits. Procedure Note Jass Sy MD - 01/06/2022 XR ORBIT FOR FOREIGN BODY (BILATERAL) COMPARISON: None FINDINGS: No radiopaque foreign body in the orbits. IMPRESSION: No radiopaque foreign body in the orbits. Tre Carter MD, [facility] IMG XR HEAD AND SHUNT SER IES Final Result documented in this encounter Visit Diagnoses Diagnosis Foreign body in eye, unspecified laterality, initial encounter Foreign body in eye, unspecified laterality, initial encounter documented in this encounter Care Teams Atmospheric Physics Professor Relationship Specialty Start Date End Date Tico Reynolds MD NPI: [id number] [place] [address] [place] [address] PCP - General Internal Medicine 05/25/21 Bartolo Craig MD [address] [place] [address] [address] [place] [address] [email or web address] Client Administrator Cardiology 10/25/21 Ingrid Overton RN [address] [facility] [address] [place] [address] [email or web address] Registered Nurse 03/01/22 documented as of this encounter Additional Source Comments The information contained in this document represents components of the legal health record. It is not the complete legal health record.[facility]
--- OUTSIDE RECORDS SUMMARY | 2025-03-26 15:54 | XMS_ITS | Encounter Summary ---
Author Organization [facility] Address [address] [facility] [address] [place] [address] Phone Care Team Providers Care Resident Care Spec Name Role Phone Tico Reynolds MD Primary Care Provider [phone] Bartolo Craig MD Unavailable [phone] Ingrid Overton RN Unavailable [phone] Encounter Details Date Type Department Care Team (Late st Contact Info) Description 07/22/2021 Procedure Pass [facility] Cardiology [address] [facility], [address] [place] [id number] Social History Tobacco Use Types Packs/Day Years Used Date Smoking Tobacco: Never Assessed Sex and Gender Information Value Date Recorded Sex Assigned at Male 05/25/2021 12:51 PM EST Legal Sex Male 12:48 PM EST Gender Identity Male 05/25/2021 12:51 PM EST Sexual Orientation Straight 05/25/2021 12 :51 PM EST documented as of this encounter Plan of Treatment Upcoming Encounters Date Type Department Care Team (Late st Contact Info) Description 05/11/2025 12:30 PM EST Telemedicine [facility] [address] [facility], 5th Floor, [address] [place] [address] Bartolo Craig MD 55 [facility] GRB [address]GR[address] [place] [address] NHUNG@[email or web address] 06/10/2025 1:45 PM EST Office Visit [facility] Rehabilitation Services 159 [place] [address] Tico Reynolds MD [address] [place] [address] Dr Luna [place] [facility] [address] Zaira Arredondo, OT 159 [place] [address] [email or web address] documented as of this encounter Visit Diagnoses Not on filedocumented in this encounter Care Teams Resident Care Spec Relationship Specialty Start Date End Date Tico Reynolds MD [address] [place] [address] [place] [address] PCP - General Internal Medicine 05/25/21 Bartolo Craig MD [address] [facility] [address] [place] [address] NHUNG@[email or web address] Software Analyst Cardiology 10/25/21 Ingrid Overton, ARSALAN [address] [facility] [address] [place] [address] [email or web address] Registered Nurse 03/01/22 documented as of this encounter Additional Source Comments The information contained in this document represents components of the legal health record. It is not the complete legal health record.[facility]
--- OUTSIDE RECORDS SUMMARY | 2025-03-26 15:54 | XMS_ITS | Encounter Summary ---
Author Organization [facility] Address [address] [place] [address] [address] [place] [address] Phone Care Team Providers Care Attorney General Name Role Phone Tico Reynolds MD Primary Care Provider [phone] Bartolo Craig MD Unavailable [phone] Ingrid Overton RN Unavailable [phone] Encounter Details Date Type Department Care Team (Late Contact Info) Description 03/15/2022 Anti-coag visit [facility] [address] [facility] [address] [place] [address] Ingrid Overton, RN 125 [place] [address] [email or web address] Social History Tobacco Use Types Packs/Day Years [...] Description 05/11/2025 12:30 PM EST Telemedicine [facility] [address] [facility], 5th Floor, [address] [place] [address] Bartolo Craig MD 55 [facility] [address] [place] [address] [email or web address] 06/10/2025 1:45 PM EST Office Visit [facility] Rehabilitation Services [address] [place] [address] Tico Reynolds MD [address] [place] [address] Dr Luna [address] [place] [address] Zaira Arredondo, OT 159 [place] [address] [email or web address] documented as of this encounter Visit Diagnoses Not on filedocumented in this encounter Care Teams Attorney General Relationship Specialty Start Date End Date Tico Reynolds MD [address] [place] [address] Dr Luna [address] [place] [address] PCP - General Internal Medicine 05/25/21 Bartolo Craig MD [address] [facility] [address] [place] [address] [email or web address]@[email or web address] Senior Svp Cardiology 10/25/21 Ingrid Overton RN 55 [facility] GRB [address] [place] [address] [email or web address] Registered Nurse 03/01/22 documented as of this encounter Additional Source Comments The information contained in this document represents components of the legal health record. It is not the complete legal health record.[facility]
--- OUTSIDE RECORDS SUMMARY | 2025-03-26 15:54 | XMS_ITS | Encounter Summary ---
Author Organization [facility] Address [address] [facility] [address] [place] [address] Phone Care Team Providers Care Agricultural Education Teacher Name Role Phone Tico Reynolds MD Primary Care Provider [phone] Bartolo Craig MD Unavailable [phone] Ingrid Overton RN Unavailable [phone] Encounter Details Date Type Department Care Team (Late st Contact Info) Description 12/30/2021 Procedure Pass MRI, [facility] [place] [address] [address] [facility], [address] [place] [id number] Social History Tobacco Use Types Packs/Day Years [...] 05/11/2025 12:30 PM EST Telemedicine [facility] [address] [facility], 5th Floor, [address] [place] [address] Bartolo Craig MD 55 [facility] GRB [address] [place] [address] [email or web address] 06/10/2025 1:45 PM EST Office Visit [facility] 159 [place] [address] Tico Reynolds MD [address] [place] [address] Dr Luna [address] [place] [address] Zaira Arredondo, OT 159 [place] [address] [email or web address] documented as of this encounter Visit Diagnoses Not on filedocumented in this encounter Care Teams Agricultural Education Teacher Relationship Specialty Start Date End Date Tico Reynolds MD [address] [place] [address] [place] [address] PCP - General Internal Medicine 05/25/21 Bartolo Craig MD [address] [facility] [address] [place] [address] [email or web address]@[email or web address] Hand Mixer Cardiology 10/25/21 Ingrid Overton RN [address] [facility] GRB [address] 800 [place] [address] [email or web address] Registered Nurse 03/01/22 documented as of this encounter Additional Source Comments The information contained in this document represents components of the legal health record. It is not the complete legal health record.[facility]
--- OUTSIDE RECORDS SUMMARY | 2025-03-26 15:54 | XMS_ITS | Encounter Summary ---
Author Organization [facility] Address [address] [place] [address] [address] [place] [address] Phone Care Team Providers Care Pharmacy Laboratory Technician Name Role Phone Tico Reynolds MD Primary Care Provider [phone] Bartolo Craig MD Unavailable [phone] Ingrid Overton RN Unavailable [phone] Encounter Details Date Type Department Care Team (Late st Contact Info) Description 07/22/2021 Procedure Pass [facility] Cardiac US 55 [place] [address] Social History Tobacco Use Types Packs/Day Years [...] Info) Description 05/11/2025 12:30 PM EST Telemedicine [facility] [address] [facility], 5th Floor, [address] [place] [address] Bartolo Craig MD [address] [facility] GRB [address] [place] [address] [email or web address] 06/10/2025 1:45 PM EST Office Visit [facility] Rehabilitation Services [address] [place] [address] Tico Reynolds MD [address] [place] [address] [place] [address] Zaira Arredondo, OT 159 [place] [address] [email or web address] documented as of this encounter Visit Diagnoses Not on filedocumented in this encounter Care Teams Pharmacy Laboratory Technician Relationship Specialty Start Date End Date Tico Reynolds MD [address] [place] [address] [place] [address] PCP - General Internal Medicine 05/25/21 Bartolo Craig MD [facility] [address] [place] [address] [email or web address] Anesthesia Associate Cardiology 10/25/21 Ingrid Overton, ARSALAN [address] [facility] GRB [address] [place] [address] [email or web address] Registered Nurse 03/01/22 documented as of this encounter Additional Source Comments The information contained in this document represents components of the legal health record. It is not the complete legal health record.[facility]
--- OUTSIDE RECORDS SUMMARY | 2025-03-26 15:54 | XMS_ITS | Encounter Summary ---
Author Organization [facility] Address [address] [place] [address] [address] [place] [address] Phone Care Team Providers Care Seismograph Chief Name Role Phone Tico Reynolds MD Primary Care Provider [phone] Bartolo Craig MD Unavailable [phone] Ingrid Overton RN Unavailable [phone] Encounter Details Date Type Department Care Team (Late Contact Info) Description 03/10/2022 Anti-coag visit [facility] [address] [facility] [address] [place] [address] Cher Ba RN 125 [place] [address] [email or web address] Social History Tobacco Use Types Packs/Day Years [...] Info) Description 05/11/2025 12:30 PM EST Telemedicine [facility] 32 [facility], 5th Floor, [address] [place] [address] Bartolo Craig MD [address] [facility] [address] [place] [address] [email or web address] 06/10/2025 1:45 PM EST Office Visit [facility] Rehabilitation Services 159 [place] [address] Tico Reynolds MD [address] [place] [address] [address] Zaira Arredondo, OT 159 [place] [address] [email or web address] documented as of this encounter Visit Diagnoses Not on filedocumented in this encounter Care Teams Seismograph Chief Relationship Specialty Start Date End Date Tico Reynolds MD [address] [place] [address] [address] PCP - General Internal Medicine 05/25/21 Bartolo Craig MD 55 [facility] [address] [place] [address] [email or web address] Collaborative Teacher Cardiology 10/25/21 Ingrid Overton, ARSALAN [address] [facility] [address] [place] [address] [email or web address] Registered Nurse 03/01/22 documented as of this encounter Additional Source Comments The information contained in this document represents components of the legal health record. It is not the complete legal health record.[facility]
--- OUTSIDE RECORDS SUMMARY | 2025-03-26 15:54 | XMS_ITS | Encounter Summary ---
Author Organization [facility] Address [address] [facility] [address] [place] [address] Phone Care Team Providers Care Director Of Hotel Operations Name Role Phone Tico Reynolds MD Primary Care Provider + -[phone] Bartolo Craig MD Unavailable [phone] Ingrid Overton RN Unavailable [phone] Encounter Details Date Type Department Care Team (Late st Contact Info) Description 06/28/2021 Procedure Pass [facility] [place] Referral Images [address] [place] [address] Social History Tobacco Use Types Packs/Day Years [...] Info) Description 05/11/2025 12:30 PM EST Telemedicine [facility] [address] [facility], 5th Floor, [address] [place] [address] Bartolo Craig MD 55 [facility] GRB [address] [place] [address] [email or web address] 06/10/2025 1:45 PM EST Office Visit [facility] Rehabilitation Services 159 [place] [address] Tico Reynolds MD [address] [place] [address] [place] [address] Zaira Arredondo, OT 159 [place] [address] [email or web address] documented as of this encounter Visit Diagnoses Not on filedocumented in this encounter Care Teams Director Of Hotel Operations Relationship Specialty Start Date End Date Tico Reynolds MD [address] [place] [address] [place] [address] PCP - General Internal Medicine 05/25/21 Bartolo Craig MD 55 [facility] [address] 800 [place] [address] NHUNG@[email or web address] Social Scientist Cardiology 10/25/21 Ingrid Overton, ARSALAN 55 [facility] GR[address] 800 [place] [address] [email or web address] Registered Nurse 03/01/22 documented as of this encounter Additional Source Comments The information contained in this document represents components of the legal health record. It is not the complete legal health record.[facility]
--- OUTSIDE RECORDS SUMMARY | 2025-03-26 15:54 | XMS_ITS | Encounter Summary ---
Author Organization [facility] Address [address] [place] [address] [address] [place] [address] Phone Care Team Providers Care Line Patroller Name Role Phone Tico Reynolds MD Primary Care Provider [phone] Bartolo Craig MD Unavailable [phone] Ingrid Overton RN Unavailable [phone] Encounter Details Date Type Department Care Team (Late st Contact Info) Description 10/18/2021 Procedure Pass [facility] Cardiac US 55 [place] [address] Social History Tobacco Use Types Packs/Day Years [...] 12:30 PM EST Telemedicine [facility] 32 [facility], 5th Floor, [address] [place] [address] Bartolo Craig MD 55 [facility] GRB 800GRB [address] [place] [address] [email or web address] 06/10/2025 1:45 PM EST Office Visit [facility] Rehabilitation Services 159 [place] [address] Tico Reynolds MD [address] [place] [address] [place] [address] Zaira Arredondo, OT 159 [place] [address] [email or web address] documented as of this encounter Visit Diagnoses Not on filedocumented in this encounter Care Teams Line Patroller Relationship Specialty Start Date End Date Tico Reynolds MD [address] [place] [address] [place] [address] PCP - General Internal Medicine 05/25/21 Bartolo Craig MD 55 [facility] 800GRB [address] [place] [address] [email or web address] Aboriginal Community Council Member Cardiology 10/25/21 Ingrid Overton RN 55 [facility] GRB [address]GRB [address] [place] [address] [email or web address] Registered Nurse 03/01/22 documented as of this encounter Additional Source Comments The information contained in this document represents components of the legal health record. It is not the complete legal health record.[facility]
--- OUTSIDE RECORDS SUMMARY | 2025-03-26 15:54 | XMS_ITS | Encounter Summary ---
Author Organization [facility] Address [address] [facility] [address] [place] [address] Phone Care Team Providers Care Director Enterprise Systems Name Role Phone Tico Reynolds MD Primary Care Provider [phone] Bartolo Craig MD Unavailable [phone] Ingrid Overton RN Unavailable [phone] Encounter Details Date Type Department Care Team (Late st Contact Info) Description 12/30/2021 Procedure Pass MRI, [facility] [place] [address] [address] [facility], [address] [place] [id number] Social History Tobacco Use Types Packs/Day Years [...] Info) Description 05/11/2025 12:30 PM EST Telemedicine [facility] 32 [facility], 5th Floor, [address] [place] [address] Bartolo Craig MD 55 [facility] GR[address]GR[address] [place] [address] [email or web address] 06/10/2025 1:45 PM EST Office Visit [facility] Rehabilitation Services 159 [place] [address] Tico Reynolds MD [address] [place] [address] Dr [address] [place] [address] Zaira Arredondo, OT 159 [place] [address] [email or web address] documented as of this encounter Visit Diagnoses Not on filedocumented in this encounter Care Teams Director Enterprise Systems Relationship Specialty Start Date End Date Tico Reynolds MD [address] [place] [address] [place] [address] PCP - General Internal Medicine 05/25/21 Bartolo Craig MD 55 [facility] [address] [place] [address] NHUNG@[email or web address] Manager Revenue Cardiology 10/25/21 Ingrid Overton RN 55 [facility] [address] [place] [address] [email or web address] Registered Nurse 03/01/22 documented as of this encounter Additional Source Comments The information contained in this document represents components of the legal health record. It is not the complete legal health record.[facility]
--- OUTSIDE RECORDS SUMMARY | 2025-03-26 15:54 | XMS_ITS | Encounter Summary ---
Author Organization [facility] Address [address] [facility] [address] [place] [address] Phone Care Team Providers Care Chief Of Staff Doctor Name Role Phone Tico Reynolds MD Primary Care Provider [phone] Bartolo Craig MD Unavailable [phone] Ingrid Overotn RN Unavailable [phone] Encounter Details Date Type Department Care Team (Late st Contact Info) Description 05/18/2023 Procedure Pass [facility] Cardiology [address] [facility], [address] [place] [id number] Social History Tobacco Use Types Packs/Day Years [...] Info) Description 05/11/2025 12:30 PM EST Telemedicine [facility] 32 [facility], 5th Floor, [address] [place] [address] Bartolo Craig MD 55 [facility] GRB 800GRB [address] [place] [address] [email or web address] 06/10/2025 1:45 PM EST Office Visit [facility] Rehabilitation Services 159 [place] [address] Tico Reynolds MD [address] [place] [address] Dr Luna [address] [place] [address] Zaira Arredondo, OT 159 [place] [address] [email or web address] documented as of this encounter Visit Diagnoses Not on filedocumented in this encounter Additional Health Concerns Assessment Noted Time PHQ-9 Depression Total Score: 5 02/09/20 23 9:32 AM EDT PHQ-2 Depression Total Score: 4 01/06/20 23 2:09 PM EDT documented as of this encounter Care Teams Chief Of Staff Doctor Relationship Specialty Start Date End Date Tico Reynolds MD [address] [place] [address] [place] [address] PCP - General Internal Medicine 05/25/21 Bartolo Craig MD 55 [facility] GRB [address]GRB [address] [place] [address] NHUNG@[facility] School Bus Attendant Cardiology 10/25/21 Ingrid Overton, ARSALAN 55 [facility] GRB 800GRB 800 [place] [address] [email or web address] Registered Nurse 03/01/22 documented as of this encounter Additional Source Comments The information contained in this document represents components of the legal health record. It is not the complete legal health record.[facility]
--- OUTSIDE RECORDS SUMMARY | 2025-03-26 15:54 | XMS_ITS | Encounter Summary ---
Author Organization [facility] Address [address] [facility] [address] [place] [address] Phone Care Team Providers Care Radiological Technologist Name Role Phone Tico Reynolds MD Primary Care Provider [phone] Bartolo Craig MD Unavailable [phone] Ingrid Overton RN Unavailable [phone] Encounter Details Date Type Department Care Team (Late Contact Info) Description 03/08/2022 Anti-coag visit [facility] Anticoagulation Management Service [address] [place] [address] Alta Akhtar RN [email or web address] Social History Tobacco Use Types Packs/Day Years [...] Info) Description 05/11/2025 12:30 PM EST Telemedicine [facility] 32 [facility], 5th Floor, [address] [place] [address] Bartolo Craig MD 55 [facility] GRB 800GRB 800 [place] [address] NHUNG@[email or web address] 06/10/2025 1:45 PM EST Office Visit [facility] Rehabilitation Services 159 [place] [address] Tico Reynolds MD [address] [place] [address] Dr Luna [address] [place] [address] Zaira Arredondo, OT 159 [place] [address] [email or web address] documented as of this encounter Visit Diagnoses Not on filedocumented in this encounter Care Teams Radiological Technologist Relationship Specialty Start Date End Date Tico Reynolds MD [address] [place] [address] [place] [address] PCP - General Internal Medicine 05/25/21 Bartolo Craig MD 55 [facility] GRB 800GRB 800 [place] [address] NHUNG@[email or web address] Sciences Dean Cardiology 10/25/21 Ingrid Overton RN [address] GRB [address]GRB 800 [place] [address] [email or web address] Registered Nurse 03/01/22 documented as of this encounter Additional Source Comments The information contained in this document represents components of the legal health record. It is not the complete legal health record.[facility]
--- OUTSIDE RECORDS SUMMARY | 2025-03-26 15:54 | XMS_ITS | Encounter Summary ---
Author Organization [facility] Address [address] [place] [address] [address] [place] [address] Phone Care Team Providers Care Blade Filer Name Role Phone Tico Reynolds MD Primary Care Provider + [phone] Bartolo Craig MD Unavailable [phone] Ingrid Overton RN Unavailable [phone] Encounter Details Date Type Department Care Team (Late st Contact Info) Description 03/31/2022 Procedure Pass [facility]ter [facility] [address] [facility], 5th Floor, [address] [place] [address] Social History Tobacco Use Types Packs/Day Years [...] Info) Description 05/11/2025 12:30 PM EST Telemedicine [facility] 32 [facility], 5th Floor, [address] [place] [address] Bartolo Craig MD 55 [facility] GRB 800GRB 800 [place] [address] [email or web address] [email or web address] 06/10/2025 1:45 PM EST Office Visit [facility] Rehabilitation Services 159 [place] [address] Tico Reynolds MD [address] [place] [address] [address] Zaira Arredondo, OT 159 [place] [address] [email or web address] documented as of this encounter Visit Diagnoses Not on filedocumented in this encounter Care Teams Blade Filer Relationship Specialty Start Date End Date Tico Reynolds MD [address] [place] [address] [place] [address] PCP - General Internal Medicine 05/25/21 Bartolo Craig MD 55 [facility] GRB [address]GRB [address] [place] [address] NHUNG@[email or web address] [email or web address] [place] Belt Builder Cardiology 10/25/21 Ingrid Overton, ARSALAN 55 [facility] GRB 800GRB 800 [place] [address] [email or web address] Registered Nurse 03/01/22 documented as of this encounter Additional Source Comments The information contained in this document represents components of the legal health record. It is not the complete legal health record.[facility]
--- OUTSIDE RECORDS SUMMARY | 2025-03-26 15:54 | XMS_ITS | Encounter Summary ---
Author Organization [facility] Address [address] [facility] [address] [place] [address] Phone Care Team Providers Care Cognos Developer Name Role Phone Tico Reynolds MD Primary Care Provider [phone] Bartolo Craig MD Unavailable [phone] Ingrid Overton RN Unavailable [phone] Encounter Details Date Type Department Care Team (Late Contact Info) Description 03/03/2022 Anti-coag visit [facility] Anticoagulation Management Service [address] [facility] [address] [place] [address] Yanira Copeland, JUSTINA [address] [place] [address] [email or web address] Social History Tobacco Use Types Packs/Day Years [...] Info) Description 05/11/2025 12:30 PM EST Telemedicine [facility] 32 [facility], 5th Floor, [address] [place] [address] Bartolo Craig MD 55 [facility] GRB 800GRB [address] [place] [address] [email or web address] 06/10/2025 1:45 PM EST Office Visit [facility] Rehabilitation Services 159 [place] [address] Tico Reynolds MD [address] [place] [address] [address] Zaira Arredondo, OT 159 [place] [address] [email or web address] documented as of this encounter Visit Diagnoses Not on filedocumented in this encounter Care Teams Cognos Developer Relationship Specialty Start Date End Date Tico Reynolds MD [address] [place] [address] [address] PCP - General Internal Medicine 05/25/21 Bartolo Craig MD 55 [facility] 800GRB [address] [place] [address] NHUNG@[email or web address] Computer Programmer Cardiology 10/25/21 Ingrid Overton, ARSALAN 55 [facility] GRB 800GR[address] [place] [address] [email or web address] Registered Nurse 03/01/22 documented as of this encounter Additional Source Comments The information contained in this document represents components of the legal health record. It is not the complete legal health record.[facility]
--- OUTSIDE RECORDS SUMMARY | 2025-03-26 15:54 | XMS_ITS | Encounter Summary ---
Author Organization [facility] Address [address] [facility] [address] [place] [address] Phone Care Team Providers Care Training Specialist Name Role Phone Tico Reynolds MD Primary Care Provider + [phone] Bartolo Craig MD Unavailable [phone] Ingrid Overton RN Unavailable [phone] Encounter Details Date Type Department Care Team (Late st Contact Info) Description 01/17/[address] [place] [address] 55 [facility], 2nd Floor, [address] [place] [address] Social History Tobacco Use Types Packs/Day Years Used Date Smoking Tobacco: Former Smokeless Tobacco: Never Alcohol Use Standard Drinks/Week Comments Yes 4 [...] EST Telemedicine [place] [facility] [address] [facility], 5th Floor, [address] [place] [address] Bartolo Craig MD 55 [facility] GRB 800GRB 800 [place] [address] NHUNG@[email or web address] [place] [email or web address] 06/10/2025 1:45 PM EST Office Visit [facility] Rehabilitation Services 159 [place] [address] Tico Reynolds MD [address] [place] [address] [place] [address] Zaira Arredondo, OT 159 [place] [address] [email or web address] documented as of this encounter Visit Diagnoses Not on filedocumented in this encounter Care Teams Training Specialist Relationship Specialty Start Date End Date Tico Reynolds MD [address] [place] [address] [place] [address] PCP - General Internal Medicine 05/25/21 Bartolo Craig MD 55 [facility] GRB [address] 800 [place] [address] NHUNG@[email or web address] [place] [email or web address] Glass Lathe Operator Cardiology 10/25/21 Ingrid Overton, RN 55 [facility] GRB [address] 800 [place] [address] [email or web address] Registered Nurse 03/01/22 documented as of this encounter Additional Source Comments The information contained in this document represents components of the legal health record. It is not the complete legal health record.[facility]
--- OUTSIDE RECORDS SUMMARY | 2025-03-26 15:54 | XMS_ITS | Encounter Summary ---
Author Organization [facility] Address [address] [facility] [address] [place] [address] Phone Care Team Providers Care Educational Administrator Name Role Phone Tico Reynolds MD Primary Care Provider + -[phone] Bartolo Craig MD Unavailable [phone] Ingrid Overton RN Unavailable [phone] Encounter Details Date Type Department Care Team (Late st Contact Info) Description 08/03/2022 Procedure Pass [facility] Cardiology Referral Images [address] [place] [address] Social History Tobacco Use Types Packs/Day Years [...] Info) Description 05/11/2025 12:30 PM EST Telemedicine [facility] 32 [facility], 5th Floor, [address] [place] [address] Bartolo Craig MD 55 [facility] GRB 800GR[address] [place] [address] NHUNG@[email or web address] 06/10/2025 1:45 PM EST Office Visit [facility] Rehabilitation Services 159 [place] [address] Tico Reynolds MD [address] [place] [address] [place] [address] Zaira Arredondo, OT 159 [place] [address] [email or web address] documented as of this encounter Visit Diagnoses Not on filedocumented in this encounter Additional Health Concerns Assessment Noted Time PHQ-9 Depression Total Score: 3 06/27/19 23 10:52 AM EST documented as of this encounter Care Teams Educational Administrator Relationship Specialty Start Date End Date Tico Reynolds MD [address] [place] [address] [place] [address] PCP - General Internal Medicine 05/25/21 Bartolo Craig MD [address] [facility] [address] [place] [address] NHUNG@[facility] [place] Regional Forester Cardiology 10/25/21 Ingrid Overton, ARSALAN [address] [facility] [address] [place] [address] [email or web address] Registered Nurse 03/01/22 documented as of this encounter Additional Source Comments The information contained in this document represents components of the legal health record. It is not the complete legal health record.[facility]
--- OUTSIDE RECORDS SUMMARY | 2025-03-26 15:54 | XMS_ITS | Encounter Summary ---
Author Organization [facility] Address [address] [place] [address] [place] [address] Phone Care Team Providers Care Report Analyst Name Role Phone Tico Reynolds MD Primary Care Provider [phone] Bartolo Craig MD Unavailable [phone] Ingrid Overton RN Unavailable [phone] Encounter Details Date Type Department Care Team (Latest Contact Info) Description 06/28/2021 Transcribe Orders [facility] Cardiovascular Medicine [address] [place] [address], 5th Floor, [address] [place] [address] Unknown, Unknown, Diagnosis unknown (Primary Dx) Social History Tobacco Use Types Packs/Day Years [...] 05/11/2025 12:30 PM EST Telemedicine [facility] [address] [facility], 5th Floor, [address] [place] [address] Bartolo Craig MD [address] [facility] GRB [address] [place] [address] [email or web address] 06/10/2025 1:45 PM EST Office Visit [facility] [address] [place] [address] Tico Reynolds MD [address] [place] [address] Dr Luna Harper [place] [address] Zaira Arredondo, OT [address] [place] [address] [email or web address] documented as of this encounter Results * Outside Echo Exam (06/28/2021 11:48 AM EST) Other Narrative SYSTEMGENERATED, DOCUMENTATION - 06/28/2021 11:48 AM EST Outside Images for comparison purposes only. us Provider [facility] Admitting CV ECHO ORDERABLES Final Result documented in this encounter Visit Diagnoses Diagnosis Diagnosis unknown- Primary Diagnosis unknown documented in this encounter Care Teams Report Analyst Relationship Specialty Start Date End Date Tico Reynolds MD [address] [place] [address] [place] [address] PCP - General Internal Medicine 05/25/21 Bartolo Craig MD [address] [place] [address]B [address] [place] [address] [email or web address] Cardiology 10/25/21 Ingrid Overton, ARSALAN [address] [facility] GRB 800GRB [address] [place] [address] [email or web address] Registered Nurse 03/01/22 documented as of this encounter Additional Source Comments The information contained in this document represents components of the legal health record. It is not the complete legal health record.[facility]
--- OUTSIDE RECORDS SUMMARY | 2025-03-26 15:54 | XMS_ITS | Encounter Summary ---
Author Organization [facility] Address [address] [place] [address] [address] [place] [address] Phone Care Team Providers Care Technical Maintenance Technician Name Role Phone Tico Reynolds MD Primary Care Provider [phone] Bartolo Craig MD Unavailable [phone] Ingrid Overton RN Unavailable [phone] Reason for Referral * MRI/CAT Scan - Closed Specialty Diagnoses / Procedures Referred By Aleyda monterroso Referred To Contact Radiology Diagnoses Preop testing Procedures CT Cardiac CT Angio Coronary Arteries CHG CT ANGIO HRT CORNRY ART/BYPASS GRFTS CONTRST 3D POST CHG CT HEART CONTRAST EVAL CARDIAC STRUCT/MORPH Sherice Parada FNP Phone: tel: fax: mailto:[email or web address] Referral ID Status Reason Start Date Expiration Date Visits Re quested Visits Authorized [id number] Closed 02/06/2022 03/08/2022 1 1 Encounter Details Date Type Department Care Team (Late st Contact Info) Description 02/06/2022 Ancillary Orders [facility] Division of Cardiac Surgery [address] [place] [address], 6th Floor, [address] [place] [address] Sherice Parada FNP [address] [place] [address] [email or web address] Preop testing Social History Tobacco Use Types Packs/Day Years [...] Info) Description 05/11/2025 12:30 PM EST Telemedicine [facility] [address] [facility], 5th Floor, [address] [place] [address] Bartolo Craig MD [facility] [address] [place] [address] [email or web address] 06/10/2025 1:45 PM EST Office Visit [facility] [address] [place] [address] [id number] Tico Reynolds MD [address] [place] [address] [place] [address] Zaira Arredondo, OT [address] [place] [address] [email or web address] documented as of this encounter Results * CT ANGIO CORONARY ARTERIES WITH AND WITHOUT CONTRAST (02/06/2022 1:37 PM EDT) Anatomical Region Laterality Modality Heart Computed Tomogra phy 02/06/2022 2:29 PM EDT Impressions 02/08/2022 1:03 AM EDT * CAD-RADS 0: No plaque nor stenosis. * Mitral valve prolapse with flail posterior leaflet. * Preserved global and regional resting left ventricular systolic function. * Dilated ascending thoracic aorta measuring up to 4.1 cm. * 5 mm perifissural nodule along the right minor fissure. RECOMMENDATIONS: 1. Consider optional follow-up of pulmonary nodule in [address] of the chest. This report has been forwarded to an automated communication system which will electronically notify appropriate providers of potentially important findings. ATTESTATION: I, Dr. Haile Benites as teaching physician, have reviewed the images for this case and if necessary edited the report originally created by Yenifer Westbrook. Narrative 02/08/2022 1:03 AM EDT EXAM: Coronary and Cardiothoracic CT Angiography INDICATIONS: Worsening dyspnea over the past 6 months, with mitral regurgitation noted on TTE, resenting for preoperative imaging ADDITIONAL HISTORY: None PRIOR REVASCULARIZATION: None COMPARISON: Transthoracic echo dated 09/21/2021 TECHNIQUE: Acquisition: Financial Report Service Sales Agent images, Noncontrast prospectively triggered exam, bolus triggering, prospectively ECG-triggered axial-sequential. Delayed images were acquired. Multiple data sets were reconstructed at different R-R intervals, if applicable. Multiplanar post processing and 3D volume rendering were performed and interpreted. A maximum width full field of view was also reconstructed and reviewed. Radiation dose protection: [facility] site protocols were employed, including where available: iterative reconstruction methods, automatic exposure control (tube potential and tube current modulation); ECG-based tube current modulation. Exam-specific dose metrics: CTDIvol: .6 - 24.1 mGy. DLP: 1100 mGy-cm. MEDICATION: A focused history and medication reconciliation was performed at the time of exam. Preparatory medications including doses and routes are documented in the electronic medical record. CONTRAST: CTA was performed using the bolus triggering technique using iodinated intravenous contrast at a rate and volume as documented in the image record. A normal saline flush was injected immediately following each contrast injection. VITAL SIGNS: Monitored and documented pre- and post- exam, as noted in the scanned document archived in the medical record. HEART RATE AND RHYTHM: Rhythm: Sinus as documented in the image record. QUALITY: Good. Stenoses and are reported in accordance with the CAD-RADS Coronary Artery Disease Reporting and Data System, a consensus statement of the Society of Cardiovascular Computed Tomography, [place] [employer], and [place] [employer] of Cardiovascular Imaging (Journal of Cardiovascular Computed Tomography 2016): CAD-RADS 0 - (0% maximal stenosis): No plaque or stenosis; Documented absence of CAD CAD-RADS 1 - (1-24%) Minimal stenosis or plaque with no stenosis; Minimal non-obstructive CAD CAD-RADS 2 - (25-49%) Mild stenosis; Mild non-obstructive CAD CAD-RADS 3 - (50-69%) Moderate stenosis CAD-RADS 4A - (70-99%) Severe stenosis CAD-RADS 4B - (Left main >50% or 3-vessel obstructive >= 70% disease) CAD-RADS 5 - (100%) Total coronary occlusion CAD-RADS N - Non-diagnostic study; obstructive CAD cannot be excluded Modifiers: S (stent), G (graft), V (vulnerability) The CAD-RADS classification should be applied on a per-patient basis for the clinically most relevant (usually highest-grade) stenosis. All vessels greater than 1.5 mm in diameter should be graded for stenosis severity. CAD-RADS will not apply for smaller vessels (<1.5 mm in diameter). FINDINGS: Coronary CTA: Left Main: The left main coronary artery trifucates into the LAD, LCx, and Ramus Intermedius. There is no plaque or stenosis. Left Anterior Descending (LAD): The LAD wraps around the apex and gives rise to one diagonal branches. There is no plaque or stenosis. Left Circumflex (LCX): The left circumflex is a medium sized vessel that gives rise to 1 OM branch. There is no plaque or stenosis. Right Coronary Artery (RCA): The RCA is a dominant vessel that gives rise to the PDA and PLV branches. There is no plaque or stenosis. Total Coronary Plaque Walcott: The overall coronary artery calcium score is 0. NON-CORONARY CARDIAC FINDINGS: Chambers: There is biatrial dilation. The left atrium measures 6.4 cm. The right ventricle is normal in size. The left ventricle is normal in size. There is normal left ventricular systolic function. There is no evidence of left atrial or other intracardiac thrombus. Myocardium: Normal left ventricular thickness. Valves: Trileaflet aortic valve without calcifications. There mitral valve prolapse with flail of the posterior leaflet. Pericardium: No pericardial effusion, calcification or thickening. Aorta: The ascending aorta is dilated and measures 4.1 x 3.9 cm. The descending thoracic aorta measures 2.6 x 2.4 cm. No evidence of dissection in the visualized thoracic aorta. There are minimal calcified atherosclerotic plaque in the aortic arch. Pulmonary arteries: Normal size. No central pulmonary embolism. INCIDENTAL FINDINGS: There is a small amount of soft tissue in the anterior mediastinum with interdigitating fat, compatible with thymic tissue. There are dependent changes in the lungs. There are punctate, scattered calcified granulomas. A 5 mm perifissural nodule is noted along the right minor fissure (11:102). There are left renal sinus cysts. A punctate, nonobstructing right upper pole renal calculus is present. There is a small hiatal hernia. Mild degenerative changes are present in the spine and shoulders. There is a lipoma in the left pectoralis musculature. Procedure Note Haile Benites MD, MBBS - 02/08/2022 EXAM: Coronary and Cardiothoracic CT Angiography INDICATIONS: Worsening dyspnea over the past 6 months, with mitralregurgitation noted on TTE, resenting for preoperative imaging ADDITIONAL HISTORY: None PRIOR REVASCULARIZATION: None COMPARISON: Transthoracic echo dated 09/21/2021 TECHNIQUE: Acquisition: Financial Report Service Sales Agent images, Noncontrast prospectively triggered exam, bolustriggering, prospectively ECG-triggered axial-sequential. Delayed imageswere acquired. Multiple data sets were reconstructed at different R-Rintervals, if applicable. Multiplanar post processing and 3D volume rendering were performed andinterpreted. A maximum width full field of view was also reconstructedand reviewed. Radiation dose protection: [facility] site protocols were employed, including where available: iterativereconstruction methods, automatic exposure control (tube potential andtube current modulation); ECG-based tube current modulation. Exam-specific dose metrics: CTDIvol: .6 - 24.1 mGy. DLP: 1100 mGy-cm. MEDICATION: A focused history and medication reconciliation was performedat the time of exam. Preparatory medications including doses and routesare documented in the electronic medical record. CONTRAST: CTA was performed using the bolus triggering technique usingiodinated intravenous contrast at a rate and volume as documented in theimage record. A normal saline flush was injected immediately followingeach contrast injection. VITAL SIGNS: Monitored and documented pre- and post- exam, as noted in thescanned document archived in the medical record. HEART RATE AND RHYTHM: Rhythm: Sinus as documented in the image record. QUALITY: Good. Stenoses and are reported in accordance with the CAD-RADS Coronary ArteryDisease Reporting and Data System, a consensus statement of the Society ofCardiovascular Computed Tomography, [place] [employer], and[place] Society of Cardiovascular Imaging (Journal ofCardiovascular Computed Tomography 2016): CAD-RADS 0 - (0% maximal stenosis): No plaque or stenosis; Documentedabsence of CAD CAD-RADS 1 - (1-24%) Minimal stenosis or plaque with no stenosis; Minimalnon-obstructive CAD CAD-RADS 2 - (25-49%) Mild stenosis; Mild non-obstructive CAD CAD-RADS 3 - (50-69%) Moderate stenosis CAD-RADS 4A - (70-99%) Severe stenosis CAD-RADS 4B - (Left main >50% or 3-vessel obstructive >= 70% disease) CAD-RADS 5 - (100%) Total coronary occlusion CAD-RADS N - Non-diagnostic study; obstructive CAD cannot be excluded Modifiers: S (stent), G (graft), V (vulnerability) The CAD-RADS classification should be applied on a per-patient basis forthe clinically most relevant (usually highest-grade) stenosis. All vessels greater than 1.5 mm in diameter should be graded for stenosisseverity. CAD-RADS will not apply for smaller vessels (<1.5 mm indiameter). FINDINGS: Coronary CTA: Left Main: The left main coronary artery trifucates into the LAD, LCx, and RamusIntermedius. There is no plaque or stenosis. Left Anterior Descending (LAD): The LAD wraps around the apex and gives rise to one diagonal branches. There is no plaque or stenosis. Left Circumflex (LCX): The left circumflex is a medium sized vessel that gives rise to 1 OMbranch. There is no plaque or stenosis. Right Coronary Artery (RCA): The RCA is a dominant vessel that gives rise to the PDA and PLVbranches. There is no plaque or stenosis. Total Coronary Plaque Walcott: The overall coronary artery calcium score is 0. NON-CORONARY CARDIAC FINDINGS: Chambers: There is biatrial dilation. The left atrium measures 6.4 cm. Theright ventricle is normal in size. The left ventricle is normal in size.There is normal left ventricular systolic function. There is no evidenceof left atrial or other intracardiac thrombus. Myocardium: Normal left ventricular thickness. Valves: Trileaflet aortic valve without calcifications. There mitral valveprolapse with flail of the posterior leaflet. Pericardium: No pericardial effusion, calcification or thickening. Aorta: The ascending aorta is dilated and measures 4.1 x 3.9 cm. Thedescending thoracic aorta measures 2.6 x 2.4 cm. No evidence of dissectionin the visualized thoracic aorta. There are minimal calcifiedatherosclerotic plaque in the aortic arch. Pulmonary arteries: Normal size. No central pulmonary embolism. INCIDENTAL FINDINGS: There is a small amount of soft tissue in theanterior mediastinum with interdigitating fat, compatible with thymictissue. There are dependent changes in the lungs. There are punctate,scattered calcified granulomas. A 5 mm perifissural nodule is noted alongthe right minor fissure (11:102). There are left renal sinus cysts. Apunctate, nonobstructing right upper pole renal calculus is present. Thereis a small hiatal hernia. Mild degenerative changes are present in thespine and shoulders. There is a lipoma in the left pectoralis musculature. IMPRESSION: * CAD-RADS 0: No plaque nor stenosis. * Mitral valve prolapse with flail posterior leaflet. * Preserved global and regional resting left ventricular systolicfunction. * Dilated ascending thoracic aorta measuring up to 4.1 cm. * 5 mm perifissural nodule along the right minor fissure. RECOMMENDATIONS: 1. Consider optional follow-up of pulmonary nodule in [address] the chest. This report has been forwarded to an automated communication system whichwill electronically notify appropriate providers of potentially importantfindings. ATTESTATION: I, Dr. Haile Benites as teaching physician, have reviewed theimages for this case and if necessary edited the report originally createdby Yenifer Wesbtrook. us Jeanette Hernandez MD IMG CT CARDIAC Final Res ult documented in this encounter Visit Diagnoses Diagnosis Preop testing Unspecified pre-operative examination Preop testing Unspecified pre-operative examination documented in this encounter Care Teams Technical Maintenance Technician Relationship Specialty Start Date End Date Tico Reynolds MD [address] [place] [address] Dr [facility] [place] [address] PCP - General Internal Medicine 05/25/21 Bartolo Craig MD [address] [facility] GRB [address]B [address] [place] [address] [email or web address] Cardiology 10/25/21 Ingrid Overton RN [address] [facility] GR 800GRB [address] [place] [address] [email or web address] Registered Nurse 03/01/22 documented as of this encounter Additional Source Comments The information contained in this document represents components of the legal health record. It is not the complete legal health record.[facility]
--- OUTSIDE RECORDS SUMMARY | 2025-03-26 15:54 | XMS_ITS | Encounter Summary ---
Author Organization [facility] Address [address] [place] [address] [address] [place] [address] Phone Care Team Providers Care Screen Maker Name Role Phone Tico Reynolds MD Primary Care Provider [phone] Bartolo Craig MD Unavailable [phone] Ingrid Overton RN Unavailable [phone] Encounter Details Date Type Department Care Team (Late st Contact Info) Description 11/01/2021 Procedure Pass [facility] [place] [place] [address] [place] [address] Social History Tobacco Use Types Packs/Day Years [...] Description 05/11/2025 12:30 PM EST Telemedicine [facility] [address] [facility], 5th Floor, [address] [place] [address] Bartolo Craig MD 55 [facility] GRB 800GRB [address] [place] [address] [email or web address] 06/10/2025 1:45 PM EST Office Visit [facility] [address] [place] [address] Tico Reynolds MD [address] [place] [address] [place] [address] Zaira Arredondo, OT [address] [place] [address] [email or web address] documented as of this encounter Visit Diagnoses Not on filedocumented in this encounter Care Teams Screen Maker Relationship Specialty Start Date End Date Tico Reynolds MD [address] [place] [address] [place] [address] PCP - General Internal Medicine 05/25/21 Bartolo Craig MD [facility] [address] [place] [address] [email or web address] Transition Manager Cardiology 10/25/21 Ingrid Overton, ARSALAN 55 [facility] GRB [address]GRB [address] [place] [address] [email or web address] Registered Nurse 03/01/22 documented as of this encounter Additional Source Comments The information contained in this document represents components of the legal health record. It is not the complete legal health record.[facility]
--- OUTSIDE RECORDS SUMMARY | 2025-03-26 15:54 | XMS_ITS | Encounter Summary ---
Author Organization [facility] Address [address] [place] [address] Phone Care Team Providers Care Final Operations Technician Name Role Phone Tico Reynolds MD Primary Care Provider [phone] Bartolo Craig MD Unavailable [phone] Ingrid Overton RN Unavailable [phone] Encounter Details Date Type Department Care Team (Late st Contact Info) Description 04/04/2024 Procedure Pass [facility], [address] [address] Social History Tobacco Use Types Packs/Day Years Used Date Smoking Tobacco: Former Cigarettes S tarted: 1995 Smokeless Tobacco: Former Comments:quit 1995 Alcohol Use Standard Drinks/Week Comments [...] Description 05/11/2025 12:30 PM EST Telemedicine [facility] [address] [facility], 5th [address], [address] [place] [address] Bartolo Craig MD 55 [facility] GRB 800GRB [address] [place] [address] [email or web address] 06/10/2025 1:45 PM EST Office Visit [facility] [address] [place] [address] Tico Reynolds MD [address] [place] [address] [place] [address] Zaira Arredondo, OT [address] [place] [address] [email or web address] documented as of this encounter Visit Diagnoses Not on filedocumented in this encounter Additional Health Concerns Assessment Noted Time PHQ-9 Depression Total Score: 5 02/09/20 23 9:32 AM EDT PHQ-2 Depression Total Score: 4 01/06/20 23 2:09 PM EDT documented as of this encounter Care Teams Final Operations Technician Relationship Specialty Start Date End Date Tico Reynolds MD [address] [place] [address] [place] [address] PCP - General Internal Medicine 05/25/21 Bartolo Craig MD 55 [facility] GRB 800GRB [address] [place] [address] [email or web address] [employer] Technical Assistant Cardiology 10/25/21 Ingrid Overton RN 55 [facility] GRB [address]B [address] [place] [address] Registered Nurse 03/01/22 documented as of this encounter Additional Source Comments The information contained in this document represents components of the legal health record. It is not the complete legal health record.[facility]
--- OUTSIDE RECORDS SUMMARY | 2025-03-26 15:54 | XMS_ITS | Encounter Summary ---
Author Organization [facility] Address [address] [place] [address] Phone Care Team Providers Care Tyre Builder Name Role Phone Tico Reynolds MD Primary Care Provider + [phone] Bartolo Craig MD Unavailable [phone] Ingrid Overton RN Unavailable [phone] Encounter Details Date Type Department Care Team (Late st Contact Info) Description 03/29/2022 Procedure Pass [facility] Cardiac Care Management Specialist [address] [facility], Floor 9, [address] [place] [address] Social History Tobacco Use Types Packs/Day Years [...] Info) Description 05/11/2025 12:30 PM EST Telemedicine [facility] [address] [facility], 5th Floor, [address] [place] [address] Bartolo Craig MD [address] [facility] [address] [place] [address] [email or web address] 06/10/2025 1:45 PM EST Office Visit [facility] [address] [place] [address] Tico Reynolds MD [address] [place] [address] Dr [address] [place] [address] Zaira Arredondo, OT [address] [place] [address] [email or web address] documented as of this encounter Visit Diagnoses Not on filedocumented in this encounter Care Teams Tyre Builder Relationship Specialty Start Date End Date Tico Reynolds MD [address] [place] [address] Dr Luna [address] [place] [address] PCP - General Internal Medicine 05/25/21 Bartolo Craig MD [address] [facility] [address] [place] [address] [email or web address] Network Communications Engineer Cardiology 10/25/21 Ingrid Overton, ARSALAN [address] [place] [address] [email or web address] Registered Nurse 03/01/22 documented as of this encounter Additional Source Comments The information contained in this document represents components of the legal health record. It is not the complete legal health record.[facility]
--- OUTSIDE RECORDS SUMMARY | 2025-03-26 15:54 | XMS_ITS | Encounter Summary ---
Author Organization [facility] Address [address] [place] [address] [place] [address] Phone Care Team Providers Care Horticultural Farm Manager Name Role Phone Tico Reynolds MD Primary Care Provider + [phone] Bartolo Craig MD Unavailable [phone] Ingrid Overton RN Unavailable [phone] Encounter Details Date Type Department Care Team (Late st Contact Info) Description 07/25/2021 Procedure Pass [facility] Holter Lab [address] [facility], 5th Floor, [address] [place] [address] Social History Tobacco Use Types Packs/Day Years [...] Info) Description 05/11/2025 12:30 PM EST Telemedicine [facility] [address] [facility], 5th Floor, [address] [place] [address] Bartolo Craig MD [address] [facility] [address] [place] [address] [email or web address] 06/10/2025 1:45 PM EST Office Visit [facility] [address] [place] [address] Tico Reynolds MD [address] [place] [address] [place] [address] Zaira Arredondo, OT [address] [place] [address] [email or web address] documented as of this encounter Visit Diagnoses Not on filedocumented in this encounter Care Teams Horticultural Farm Manager Relationship Specialty Start Date End Date Tico Reynolds MD [address] [place] [address] [place] [address] PCP - General Internal Medicine 05/25/21 Bartolo Craig MD [address] [facility] [address] [place] [address] [email or web address] Professor Of Floriculture Cardiology 10/25/21 Ingrid Overton RN [address] [facility] [address] [place] [address] [email or web address] Registered Nurse 03/01/22 documented as of this encounter Additional Source Comments The information contained in this document represents components of the legal health record. It is not the complete legal health record.[facility]
--- OUTSIDE RECORDS SUMMARY | 2025-03-26 15:54 | XMS_ITS | Encounter Summary ---
Author Organization [facility] Address [address] [place] [address] Phone Care Team Providers Care Linen Keeper Name Role Phone Tico Reynolds MD Primary Care Provider [phone] Bartolo Craig MD Unavailable [phone] Ingrid Overton RN Unavailable [phone] Encounter Details Date Type Department Care Team (Late st Contact Info) Description 01/17/2022 Procedure Pass [facility] Cardiac US [address] [place] [address] Social History Tobacco Use Types Packs/Day Years [...] Info) Description 05/11/2025 12:30 PM EST Telemedicine [facility] [address] [facility], 5th Floor, [address] [place] [address] Bartolo Craig MD [address] [facility] [address] [place] [address] [email or web address] 06/10/2025 1:45 PM EST Office Visit [facility] [address] [place] [address] Tico Ryenolds MD [address] [place] [address] [place] [address] Zaira Arredondo, OT [address] [place] [address] [email or web address] documented as of this encounter Visit Diagnoses Not on filedocumented in this encounter Care Teams Linen Keeper Relationship Specialty Start Date End Date Tico Reynolds MD [address] [place] [address] [place] [address] PCP - General Internal Medicine 05/25/21 Bartolo Craig MD [address] [facility] [address] [place] [address] [email or web address] Manager Floral Cardiology 10/25/21 Ingrid Overton RN [address] [facility] [address] [place] [address] [email or web address] Registered Nurse 03/01/22 documented as of this encounter Additional Source Comments The information contained in this document represents components of the legal health record. It is not the complete legal health record.[facility]
--- OUTSIDE RECORDS SUMMARY | 2025-03-26 15:54 | XMS_ITS | Encounter Summary ---
Author Organization [facility] Address [address] [place] [address] Phone Care Team Providers Care Supervisor Soakers Name Role Phone Tico Reynolds MD Primary Care Provider + [phone] Bartolo Craig MD Unavailable [phone] Ingrid Overton RN Unavailable [phone] Encounter Details Date Type Department Care Team (Late st Contact Info) Description 05/04/[address] [place] [address] [facility], [address] [place] [id number] Social History Tobacco Use Types Packs/Day Years [...] Info) Description 05/11/2025 12:30 PM EST Telemedicine [facility] [address] [facility], 5th Floor, [address] [place] [address] Bartolo Craig MD [address] [facility] [address] [place] [address] [email or web address] 06/10/2025 1:45 PM EST Office Visit [facility] [address] [place] [address] Tico Reynolds MD [address] [place] [address] [place] [address] Zaira Arredondo, OT [address] [place] [address] [email or web address] documented as of this encounter Visit Diagnoses Not on filedocumented in this encounter Care Teams Supervisor Soakers Relationship Specialty Start Date End Date Tico Reynolds MD [address] [place] [address] [place] [address] PCP - General Internal Medicine 05/25/21 Bartolo Craig MD [address] [facility] [address] [place] [address] [email or web address] Cardiology 10/25/21 Ingrid Overton, ARSALAN [address] [facility] [address] [place] [address] [email or web address] Registered Nurse 03/01/22 documented as of this encounter Additional Source Comments The information contained in this document represents components of the legal health record. It is not the complete legal health record.[facility]
--- OUTSIDE RECORDS SUMMARY | 2025-03-26 15:54 | XMS_ITS | Encounter Summary ---
Author Organization [facility] Address [address] [place] [address] [address] [place] [address] Phone Care Team Providers Care Clinical Dermatologist Name Role Phone Tico Reynolds MD Primary Care Provider + [phone] Bartolo Craig MD Unavailable [phone] Ingrid Overton RN Unavailable [phone] Encounter Details Date Type Department Care Team (Late st Contact Info) Description 07/31/2022 Procedure Pass [facility] [address] [facility], 5th Floor, [address] [place] [address] Social History Tobacco Use Types Packs/Day Years [...] Description 05/11/2025 12:30 PM EST Telemedicine [facility] [address], 5th Floor, [address] [place] [address] Bartolo Craig MD [address] [facility] [address] [place] [address] [email or web address] 06/10/2025 1:45 PM EST Office Visit [facility] Rehabilitation Services [address] [place] [address] Tico Reynolds MD [address] [place] [address] [place] [address] Zaira Arredondo OT [address] [place] [address] [email or web address] documented as of this encounter Visit Diagnoses Not on filedocumented in this encounter Additional Health Concerns Assessment Noted Time PHQ-9 Depression Total Score: 3 06/27/19 23 10:52 AM EST documented as of this encounter Care Teams Clinical Dermatologist Relationship Specialty Start Date End Date Tico Reynolds MD [address] [place] [address] [place] [address] PCP - General Internal Medicine 05/25/21 Bartolo Craig MD [address] [facility] [address] [place] [address] [email or web address] Senior International Tax Manager Cardiology 10/25/21 Ingrid Overton RN [address] [facility] [address] [place] [address] [email or web address] Registered Nurse 03/01/22 documented as of this encounter Additional Source Comments The information contained in this document represents components of the legal health record. It is not the complete legal health record.[facility]
== END 2025-03-26 13:39 | disposition home or self-care (01) ==
LOC: HO.HGS 13:03
PROVIDERS: PCP Internal Medicine; Visit Provider Surgery
DX: K40.90 Unilateral inguinal hernia, without obstruction or gangrene, not specified as recurrent (principal)
CPT/HCPCS: 99203